=== PATIENT | male | born 1935 | race Caucasian/White ===

== ENCOUNTER 2018-10-01 14:43 | Observation (INO) | payer MEDICARE, BC ==
--- NOTE | 2018-10-01 15:19 | EDM.PDOC ---
ED HPI GENERAL MEDICAL PROBLEM - General Chief Complaint: General Stated Complaint: weakness, dizzy Time Seen by Provider: 10/01/18 15:00 Source of Information: Reports: Patient, Family History Limitations: Reports: No Limitations - History of Present Illness INITIAL COMMENTS - FREE TEXT/NARRATIVE: Daughter states that he called her after noon today and told her that he became weak when he got up at midnight and laid on the floor as he couldn't get back to bed. He laid there during the night and then was able to crawl in to the bathroom and get up. He then went back to bed but didn't call daughter right away. Daughter did not see any unilateral deficient when she arrived. She was not able to get him up and into car by herself so called an ambulance. He states that he feels really weak. Denies any specific pain other than to his right great toe and right medial foot. Denies having any chest pain. Onset: Gradual Location: Reports: Generalized Associated Symptoms: Denies: Chest Pain, Cough, Nausea/Vomiting, Shortness of Breath - Related Data Allergies Allergy/AdvReac Type Severity Reaction Status Date / Time No Known Allergies Allergy Verified 10/01/18 14:46 Home Meds: Home Meds Furosemide 40 mg PO DAILY 10/01/18 [History] Levothyroxine [Synthroid] 100 mg PO DAILY 10/01/18 [History] Past Medical History Cardiovascular History: Reports: Heart Failure Endocrine/Metabolic History: Reports: Hypothyroidism - Past Surgical History HEENT Surgical History: Reports: Cataract Surgery Social & Family History - Tobacco Use Smoking Status *Q: Never Smoker - Alcohol Use Days Per Week of Alcohol Use: 7 Number of Drinks Per Day: 1 Total Drinks Per Week: 7 - Recreational Drug Use Recreational Drug Use: No - Living Situation & Occupation Living situation: Reports: , with Spouse Occupation: Retired ED ROS GENERAL - Review of Systems Review Of Systems: See Below Constitutional: Reports: Weakness. Denies: Fever, Chills HEENT: Reports: No Symptoms Respiratory: Reports: No Symptoms Cardiovascular: Denies: Chest Pain, Edema GI/Abdominal: Denies: Abdominal Pain, Diarrhea : Denies: Dysuria, Frequency Musculoskeletal: Reports: Foot Pain Skin: Denies: Wound Neurological: Reports: Weakness. Denies: Confusion, Headache, Numbness, Syncope , Tingling ED EXAM, GENERAL - Physical Exam Exam: See Below Exam Limited By: No Limitations General Appearance: Alert, WD/WN, No Apparent Distress. No: Anxious Ears: Normal External Exam, Normal Canal, Normal TMs Nose: Normal Inspection Throat/Mouth: Normal Inspection, Normal Oropharynx, Normal Voice Head: Atraumatic, Normocephalic Neck: Normal Inspection, Supple, Non-Tender, Full Range of Motion Respiratory/Chest: No Respiratory Distress, Lungs Clear, Normal Breath Sounds. No: Rales, Rhonchi, Wheezing Cardiovascular: Regular Rate, Rhythm, No Edema, Other (does have a loud murmur that was evaluated by cardiology about 2-3 months ago and was told it is stable. ) Peripheral Pulses: 4+: Dorsalis Pedis (L), Dorsalis Pedis (R) GI/Abdominal: Normal Bowel Sounds, Soft, Non-Tender Back Exam: Normal Inspection, Full Range of Motion Extremities: Normal Inspection, Normal Range of Motion, Non-Tender, No Pedal Edema, Normal Capillary Refill Neurological: Alert, Oriented, Normal Cognition Psychiatric: Normal Affect Skin Exam: Warm, Dry, Intact Course - Vital Signs Last Recorded V/S: Last Vital Signs Temp 98.6 F 10/02/18 11:48 Pulse 66 10/02/18 11:48 Resp 20 10/02/18 11:48 BP 123/59 L 10/02/18 11:48 Pulse Ox 97 10/02/18 11:48 - Orders/Labs/Meds Orders: Active Orders 24 hr Category Date Time Status Chest 2V [CR] Stat Exams 10/01/18 14:57 Taken Medication Orders Enoxaparin Sodium (Lovenox) 30 mg SUBCUT 1999 [facility] Furosemide (Lasix) 40 mg PO DAILY [facility] Last Admin: 10/02/18 13:28 Dose: 40 mg Sodium Chloride (Normal Saline) 1,000 mls @ 50 mls/hr IV ASDIRECTED [facility] Last Admin: 10/02/18 11:00 Dose: 50 mls/hr Infusion: 10/02/18 11:00 Dose: 100 mls/hr Admin: 10/02/18 01:14 Dose: 100 mls/hr Levothyroxine Sodium (Synthroid) 100 mcg PO DAILY [facility] Last Admin: 10/02/18 13:28 Dose: 100 mcg Prednisone (Prednisone) 40 mg PO DAILY [facility] Last Admin: 10/02/18 08:55 Dose: 40 mg Admin: 10/01/18 19:02 Dose: 40 mg Labs: Laboratory Tests 10/01/18 10/01/18 10/01/18 Range/Units 15:11 15:11 15:11 WBC 14.3 H (5.0-10.0) 10^3/uL RBC 3.99 L (4.50-6.00) 10^6/uL Hgb 12.1 L (14.0-18.0) g/dL Hct 37.4 L (40.0-54.0) % MCV 93.7 (82.0-94.0) fL MCH 30.3 (27.0-32.0) pg MCHC 32.4 L (33.0-38.0) g/dL RDW Coeff of Cristina 14.9 (11.0-15.0) % Plt Count 175 (150-400) 10^3/uL Neut % (Auto) 72.4 (35-85) % Lymph % (Auto) 14.7 (10-55) % [place] % (Auto) 12.0 (0-16) % Eos % (Auto) 0.6 (0-5) % Baso % (Auto) 0.3 (0-3) % Neut # (Auto) 10.35 H (1.80-7.00) 10^3/uL Lymph # (Auto) 2.11 (1.00-4.80) 10^3/uL [place] # (Auto) 1.72 H (0.00-0.80) 10^3/uL Eos # (Auto) 0.09 (0.00-0.45) 10^3/uL Baso # (Auto) 0.05 10^3/uL Sodium 143 (136-145) mEq/L Potassium 4.3 (3.5-5.0) mEq/L Chloride 105 (98-106) mEq/L Carbon Dioxide 28 (21-32) mmol/L BUN 35 H (7-18) mg/dL Creatinine 1.7 H (0.7-1.3) mg/dL Est Cr Clr Drug Dosing 34.45 mL/min Estimated GFR (MDRD) 39 L (>=60) mL/min Glucose 105 H (75-99) mg/dL Uric Acid 8.6 H (3.5-7.2) mg/dL Calcium 8.2 L (8.4-10.1) mg/dL Total Bilirubin 1.1 H (0.0-1.0) mg/dL AST 37 (15-37) U/L ALT 26 (12-78) U/L Alkaline Phosphatase 60 (46-116) U/L Troponin I < 0.017 (0.00-0.06) ng/mL C-Reactive Protein 7.5 H (0.2-0.8) mg/dL Total Protein 6.8 (6.4-8.2) g/dL Albumin 3.2 L (3.4-5.0) g/dL Urine Color Rupali (YELLOW) Urine Appearance Clear (CLEAR) Urine pH 6.0 (4.5-8.0) Ur Specific Drew 1.020 (1.003-1.020) Urine Protein Trace H (NEGATIVE) mg/dL Urine Glucose (UA) Negative (NEGATIVE) mg/dL Urine Ketones Negative (NEGATIVE) mg/dL Urine Occult Blood Negative (NEGATIVE) Urine Nitrite Negative (NEGATIVE) Urine Bilirubin Negative (NEGATIVE) Urine Urobilinogen 1.0 (0.2-1.0) EU/dL Ur Leukocyte Esterase Negative (NEGATIVE) Urine RBC 0-5 (0-5) /HPF Urine WBC 0-5 (0-5) /HPF Ur Epithelial Cells Few H (NOT SEEN) /HPF Hyaline Casts Few H (NOT SEEN) /LPF Meds: Medications Generic Name Dose Route Start Last Admin Trade Name Freq PRN Reason Stop Dose Admin Enoxaparin Sodium 30 mg 10/02/18 20:00 Lovenox SUBCUT 2000 [facility] Furosemide 40 mg 10/02/18 08:00 10/02/18 13:28 Lasix PO 40 mg DAILY [facility] Administration Sodium Chloride 1,000 mls @ 50 mls/hr 10/01/18 18:29 10/02/18 11:00 Normal Saline IV 50 mls/hr ASDIRECTED [facility] Administration Levothyroxine Sodium 100 mcg 10/02/18 08:00 10/02/18 13:28 Synthroid PO 100 mcg DAILY [facility] Administration Prednisone 40 mg 10/01/18 18:30 10/02/18 08:55 Prednisone PO 40 mg DAILY [facility] Administration Discontinued Medications Generic Name Dose Route Start Last Admin Trade Name Freq PRN Reason Stop Dose Admin Enoxaparin Sodium 30 mg 10/01/18 18:29 10/01/18 19:02 Lovenox SUBCUT 30 mg Q24H [facility] Administration Sodium Chloride 1,000 mls @ 150 mls/hr 10/01/18 16:00 10/01/18 16:18 Normal Saline IV 150 mls/hr ASDIRECTED [facility] Administration Departure - Departure Time of Disposition: 18:44 Disposition: Refer to Observation Condition: Good Clinical Impression: Pre-syncope, Weakness, Gout - Discharge Information *PRESCRIPTION DRUG MONITORING PROGRAM REVIEWED*: Not Applicable *COPY OF PRESCRIPTION DRUG MONITORING REPORT IN PATIENT ALISIA: Not Applicable - Problem List & Annotations (1) Pre-syncope SNOMED Code(s): 103647809 Code(s): R55 - SYNCOPE AND COLLAPSE Status: Acute Priority: High Current Visit: Yes (2) Weakness SNOMED Code(s): 94906756 Code(s): R53.1 - WEAKNESS Status: Acute Priority: High Current Visit: Yes - Problem List Review Problem List Initiated/Reviewed/Updated: Yes - My Orders Last 24 Hours: My Active Orders 10/01/18 14:57 Chest 2V [CR] Stat - Assessment/Plan Admission H&P: Please use this note as an admission H&P Last 24 Hours: My Active Orders 10/01/18 14:57 Chest 2V [CR] Stat Plan: Will admit for IV fluids, neuro checks and repeat labs in the AM. Concern for an unidentified infection that may have caused his weakness. Neuro checks to evaluate for any TIA signs.
[2018-10-01 15:39] LABS: CHLORIDE,CL 105 mEq/L (98-106); SODIUM,NA 143 mEq/L (136-145)
[2018-10-01] MEDS ORDERED: Sodium Chloride 0.9% 1,000 ML IV SCH (16:00)
[2018-10-01] MEDS ORDERED: Enoxaparin 30 MG/0.3 ML Syringe SUBCUT SCH (18:29)
[2018-10-01] MEDS: predniSONE 20 MG Tab PO SCH (19:02)
[2018-10-02] MEDS: Sodium Chloride 0.9% 1,000 ML IV SCH ×2 (01:14→11:00)
[2018-10-02] MEDS: predniSONE 20 MG Tab PO SCH (08:55)
[2018-10-02] MEDS: LEVOTHYROXINE 100 MCG PO SCH (13:28)
[2018-10-02] MEDS: **PTOM** Furosemide 40 MG Tab PO SCH (13:28)
[2018-10-02] MEDS ORDERED: Enoxaparin 30 MG/0.3 ML Syringe SUBCUT SCH (20:00)
--- NOTE | 2018-10-02 20:46 | PCM.PN ---
- General Info Date of Service: 10/02/18 Admission Dx/Problem (Free Text): Weakness Functional Status: Reports: Pain Controlled, Tolerating Diet, Ambulating - Review of Systems General: Reports: Weakness, Fatigue. Denies: Fever HEENT: Reports: No Symptoms Pulmonary: Denies: Shortness of Breath, Cough Cardiovascular: Denies: Chest Pain, Edema, Lightheadedness Gastrointestinal: Denies: Abdominal Pain, Nausea, Vomiting Genitourinary: Reports: No Symptoms Musculoskeletal: Reports: Foot Pain Skin: Reports: No Symptoms Neurological: Reports: Weakness, Other (feels unsteady yet today) - Patient Data Vitals - Most Recent: Last Vital Signs Temp 97.8 F 10/02/18 19:45 Pulse 69 10/02/18 19:45 Resp 16 10/02/18 19:45 BP 139/74 10/02/18 19:45 Pulse Ox 94 L 10/02/18 19:45 Weight - Most Recent: 209 lb 1.6 oz I&O - Last 24 Hours: Intake & Output 10/02/18 10/02/18 10/02/18 06:59 14:59 22:59 Intake Total 50 2299 436 Output Total 662 801 9373 Balance -150 1649 -864 Lab Results Last 24 Hours: Laboratory Results - last 24 hr 10/02/18 10/02/18 Range/Units 07:05 07:05 WBC 10.0 (5.0-10.0) 10^3/uL RBC 3.78 L (4.50-6.00) 10^6/uL Hgb 11.5 L (14.0-18.0) g/dL Hct 35.9 L (40.0-54.0) % MCV 95.0 H (82.0-94.0) fL MCH 30.4 (27.0-32.0) pg MCHC 32.0 L (33.0-38.0) g/dL RDW Coeff of Cristina 14.9 (11.0-15.0) % Plt Count 154 (150-400) 10^3/uL Neut % (Auto) 79.9 (35-85) % Lymph % (Auto) 14.3 (10-55) % [place] % (Auto) 5.6 (0-16) % Eos % (Auto) 0 (0-5) % Baso % (Auto) 0.2 (0-3) % Neut # (Auto) 7.97 H (1.80-7.00) 10^3/uL Lymph # (Auto) 1.43 (1.00-4.80) 10^3/uL [place] # (Auto) 0.56 (0.00-0.80) 10^3/uL Eos # (Auto) 0.00 (0.00-0.45) 10^3/uL Baso # (Auto) 0.02 10^3/uL Sodium 145 (136-145) mEq/L Potassium 4.6 (3.5-5.0) mEq/L Chloride 110 H (98-106) mEq/L Carbon Dioxide 28 (21-32) mmol/L BUN 31 H (7-18) mg/dL Creatinine 1.4 H (0.7-1.3) mg/dL Est Cr Clr Drug Dosing 41.83 mL/min Estimated GFR (MDRD) 48 L (>=60) mL/min Glucose 132 H D (75-99) mg/dL Calcium 8.4 (8.4-10.1) mg/dL C-Reactive Protein 12.9 H (0.2-0.8) mg/dL Med Orders - Current: Current Medications Enoxaparin Sodium (Lovenox) 30 mg SUBCUT 1999 [facility] Last Admin: 10/02/18 19:39 Dose: 30 mg Furosemide (Lasix) 40 mg PO DAILY [facility] Last Admin: 10/02/18 13:28 Dose: 40 mg Sodium Chloride (Normal Saline) 1,000 mls @ 50 mls/hr IV ASDIRECTED [facility] Last Admin: 10/02/18 11:00 Dose: 50 mls/hr Levothyroxine Sodium (Synthroid) 100 mcg PO DAILY [facility] Last Admin: 10/02/18 13:28 Dose: 100 mcg Prednisone (Prednisone) 40 mg PO DAILY [facility] Last Admin: 10/02/18 08:55 Dose: 40 mg Discontinued Medications Enoxaparin Sodium (Lovenox) 30 mg SUBCUT Q24H [facility] Last Admin: 10/01/18 19:02 Dose: 30 mg Sodium Chloride (Normal Saline) 1,000 mls @ 150 mls/hr IV ASDIRECTED [facility] Last Admin: 10/01/18 16:18 Dose: 150 mls/hr - Exam General: Alert, Oriented HEENT: Mucous Membr. 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, especially to great toe and ball of foot) Skin: Warm, Dry Neurological: No New Focal Deficit - Problem List & Annotations (1) Gout SNOMED Code(s): 63299657 Code(s): M10.9 - GOUT, UNSPECIFIED Status: Acute Priority: High Current Visit: Yes Qualifiers: Gout site: foot Encounter type: initial encounter Chronicity: acute Laterality: right (2) Weakness SNOMED Code(s): 89868471 Code(s): R53.1 - WEAKNESS Status: Acute Priority: High Current Visit: Yes - Problem List Review Problem List Initiated/Reviewed/Updated: Yes - My Orders Last 24 Hours: My Active Orders 10/03/18 05:11 BASIC METABOLIC PANEL,BMP [CHEM] AM C-REACTIVE PROTEIN [CHEM] AM CBC WITH AUTO DIFF [HEME] AM - Assessment Assessment:: Weakness Gout - Plan Plan:: Patient was admitted after lying on his floor overnight and was weak when found. Daughter was unable to get patient up from floor due to weakness. He feels much better tonight, still weak and unsteady but improved. Still has pain in right foot. Is tender but no redness or warmth noted. Has been able to ambulate to the bathroom but with staff. WBC 10, Hemoglobin 11.5, sodium 145 , potassium 4.6. CRP is increased today to 12.9. Is afebrile, blood pressure in good control. Will reduce IV rate to 50 ml/hr as is eating and drinking well. Will continue to ambulate with assist. Repeat labs tomorrow. Possible discharge home if continues to improve.
[2018-10-03] MEDS: predniSONE 20 MG Tab PO SCH (07:45)
[2018-10-03] MEDS: LEVOTHYROXINE 100 MCG PO SCH (07:45)
[2018-10-03] MEDS: **PTOM** Furosemide 40 MG Tab PO SCH (07:46)
--- NOTE | 2018-10-03 20:09 | PCM.DCSUM1 ---
Discharge Summary - Hospital Course Free Text/Narrative:: Patient presented to ER today with weakness. He had become weak around midnight and laid on the floor and was not able to get back up so he slept there through the night. Did crawl that am to the bathroom and was able to get up from there. Returned back to bed and daughter found him there when she went to check on him. He did not have any stroke deficits noted at that time. Unable to get him up so EMS was called. He did complain of right great toe and foot pain. Labs done in the ER did indicate dehydration and gout. Was admitted and started on IV fluids. Prednisone for gout flare. Diagnosis: Stroke: No Modified [place] Scale: No Symptoms at All Modified [place] Scale Score: 0 - Discharge Data Discharge Date: 10/03/18 Discharge Disposition: Home, Self-Care 01 Condition: Good - Discharge Diagnosis/Problem(s) (1) Gout SNOMED Code(s): 11148659 ICD Code: M10.9 - GOUT, UNSPECIFIED Status: Acute Priority: High Qualifiers: Gout site: foot Encounter type: initial encounter Chronicity: acute Laterality: right (2) Weakness SNOMED Code(s): 59077424 ICD Code: R53.1 - WEAKNESS Status: Acute Priority: High - Patient Summary/Data Complications: none Hospital Course: Patient has done well through admission. He is now up and ambulating with standby assist. Denies any nausea/vomiting. No shortness of breath. Does continue to have some pain in his right foot. Remains red, mild swelling noted but admits is improved. His appetite is good. Labs improved. WBC has remained stable. Creatinine has improved from 1.7 to 1.3. CRP did peak at 12.9 yesterday, back down to 6.1 today, no infection found likely from gout. Will discharge home on 3 more days of prednisone and then start Allopurinol. Push fluids. See Dr. Cunha in a week. - Patient Instructions Diet: Usual Diet as Tolerated Activity: As Tolerated - Discharge Plan *PRESCRIPTION DRUG MONITORING PROGRAM REVIEWED*: Not Applicable *COPY OF PRESCRIPTION DRUG MONITORING REPORT IN PATIENT ALISIA: Not Applicable Prescriptions/Med Rec: predniSONE 40 mg PO DAILY #6 tablet Home Medications: Home Meds Furosemide 40 mg PO DAILY 10/01/18 [History] Levothyroxine [Synthroid] 100 mg PO DAILY 10/01/18 [History] predniSONE 40 mg PO DAILY #6 tablet 10/03/18 [Rx] Oxygen Therapy Mode: Nasal Cannula Forms: ED Department Discharge Referrals: Chucho Cunha MD [Primary Care Provider] - (Follow up with Dr. Cunha in one week) - Discharge Summary/Plan Comment DC Time >30 min.: No - General Info Date of Service: 10/03/18 Admission Dx/Problem (Free Text: Weakness Functional Status: Reports: Pain Controlled, Tolerating Diet, Ambulating - Review of Systems General: Reports: Weakness. Denies: Fever, Fatigue, Malaise HEENT: Reports: No Symptoms Pulmonary: Denies: Shortness of Breath, Cough Cardiovascular: Denies: Chest Pain, Edema, Lightheadedness Gastrointestinal: Denies: Abdominal Pain, Nausea, Vomiting Genitourinary: Reports: No Symptoms Musculoskeletal: Reports: Foot Pain Skin: Reports: Other (redness to foot) Neurological: Reports: No Symptoms - Patient Data Vitals - Most Recent: Last Vital Signs Temp 99.1 F 10/03/18 12:00 Pulse 70 10/03/18 12:00 Resp 18 10/03/18 12:00 BP 128/61 10/03/18 12:00 Pulse Ox 97 10/03/18 12:00 Weight - Most Recent: 208 lb 6.4 oz I&O - Last 24 hours: Intake & Output 10/03/18 10/03/18 10/03/18 06:59 14:59 22:59 Intake Total 500 1400 Output Total 1200 2550 Balance -700 -1150 Lab Results - Last 24 hrs: Laboratory Results - last 24 hr 10/03/18 10/03/18 Range/Units 07:22 07:22 WBC 12.7 H (5.0-10.0) 10^3/uL RBC 3.52 L (4.50-6.00) 10^6/uL Hgb 10.6 L (14.0-18.0) g/dL Hct 33.9 L (40.0-54.0) % MCV 96.3 H (82.0-94.0) fL MCH 30.1 (27.0-32.0) pg MCHC 31.3 L (33.0-38.0) g/dL RDW Coeff of Cristina 14.8 (11.0-15.0) % Plt Count 165 (150-400) 10^3/uL Neut % (Auto) 70.2 (35-85) % Lymph % (Auto) 17.4 (10-55) % [place] % (Auto) 11.0 (0-16) % Eos % (Auto) 1.2 (0-5) % Baso % (Auto) 0.2 (0-3) % Neut # (Auto) 8.91 H (1.80-7.00) 10^3/uL Lymph # (Auto) 2.20 (1.00-4.80) 10^3/uL [place] # (Auto) 1.39 H (0.00-0.80) 10^3/uL Eos # (Auto) 0.15 (0.00-0.45) 10^3/uL Baso # (Auto) 0.03 10^3/uL Sodium 144 (136-145) mEq/L Potassium 4.2 (3.5-5.0) mEq/L Chloride 108 H (98-106) mEq/L Carbon Dioxide 29 (21-32) mmol/L BUN 27 H (7-18) mg/dL Creatinine 1.3 (0.7-1.3) mg/dL Est Cr Clr Drug Dosing 45.05 mL/min Estimated GFR (MDRD) 53 L (>=60) mL/min Glucose 96 D (75-99) mg/dL Calcium 8.1 L (8.4-10.1) mg/dL C-Reactive Protein 6.1 H (0.2-0.8) mg/dL Med Orders - Current: Current Medications Discontinued Medications Enoxaparin Sodium (Lovenox) 30 mg SUBCUT Q24H [facility] Last Admin: 10/01/18 19:02 Dose: 30 mg Enoxaparin Sodium (Lovenox) 30 mg SUBCUT 2000 [facility] Last Admin: 10/02/18 19:39 Dose: 30 mg Furosemide (Lasix) 40 mg PO DAILY [facility] Last Admin: 10/03/18 07:46 Dose: 40 mg Sodium Chloride (Normal Saline) 1,000 mls @ 150 mls/hr IV ASDIRECTED [facility] Last Admin: 10/01/18 16:18 Dose: 150 mls/hr Sodium Chloride (Normal Saline) 1,000 mls @ 50 mls/hr IV ASDIRECTED [facility] Last Admin: 10/02/18 11:00 Dose: 50 mls/hr Levothyroxine Sodium (Synthroid) 100 mcg PO DAILY [facility] Last Admin: 10/03/18 07:45 Dose: 100 mcg Prednisone (Prednisone) 40 mg PO DAILY [facility] Last Admin: 10/03/18 07:45 Dose: 40 mg - Exam General: Reports: Alert, Oriented HEENT: Reports: Mucous Membr. Moist/[place] Neck: Reports: Supple Lungs: Reports: Clear to Auscultation, Normal Respiratory Effort Cardiovascular: Reports: Regular Rate, Regular Rhythm GI/Abdominal Exam: Normal Bowel Sounds, Soft, Non-Tender Extremities: Increased Warmth, Redness, Other (right foot has redness to the base of his great toe. Is tender. Mild swelling to the area.) Skin: Reports: Warm, Dry Neurological: Reports: No New Focal Deficit
== END 2018-10-03 15:20 | disposition home or self-care (01) ==
LOC: CC.ED 14:43 → CC.MS 18:14 → CC.ED 18:15 → CC.MS 18:18 → UNDOADMOB 18:18
PROVIDERS: ADMIT Physician Assistant Medical; ATTEND Family Medicine
DX: R53.1 Weakness (principal); M10.9 Gout, unspecified; R55 Syncope and collapse; I50.9 Heart failure, unspecified; E03.9 Hypothyroidism, unspecified; Z79.890 Hormone replacement therapy; Z79.899 Other long term (current) drug therapy
CPT/HCPCS: 36415; 71046; 80048; 80053; 81001; 84484; 84550; 85025; 86140; 93005; 93010; 96360; 96361; 96372; 99217; 99219; 99225; 99285; A9270; G0378; J1650; J7030

== ENCOUNTER 2019-10-08 10:10 | Inpatient (IN) | payer MEDICARE, BC ==
[2019-10-08] MEDS ORDERED: Allopurinol 300 MG Tab PO PRN (13:06)
[2019-10-08] MEDS ORDERED: Ondansetron 4 MG Tab.DIS PO PRN (14:18)
[2019-10-08] MEDS ORDERED: Sodium Chloride 0.9% 10 ML Syringe FLUSH PRN (14:18)
[2019-10-08] MEDS: Enoxaparin 80 MG/0.8 ML Syringe SUBCUT SCH (15:28)
[2019-10-08] MEDS: Sodium Chloride 0.45% 1,000 ML IV SCH (15:28)
[2019-10-08] MEDS ORDERED: Ondansetron 4 MG/2 ML SDV IVPUSH PRN (16:37)
--- NOTE | 2019-10-08 20:50 | EDM.PDOC ---
ED HPI GENERAL MEDICAL PROBLEM - General Chief Complaint: General Stated Complaint: Dizziness, SOB Time Seen by Provider: 10/08/19 10:55 Source of Information: Reports: Patient, EMS, Family History Limitations: Reports: No Limitations - History of Present Illness INITIAL COMMENTS - FREE TEXT/NARRATIVE: Patient presents to ER with syncopal episode at home. Has been noting increased cold symptoms for the last 3 days, cough and feeling short of breath when lying down. He has also been dealing with increased weakness in his legs and back spasms. Has history of orthostatic hypotension. Has seen cardiology for this and had been started on Minodrine. Family relates unsure if that has really helped his lightheadedness when he is up. Admits he just has not been feeling well. Daughter reports he had been up, went to rest in chair due to lightheadedness and "was out for a few minutes". He currently denies any chest pain. Does feel "a little short of breath". Has not had any fevers. Denies nausea/vomiting or abdominal pain. Onset: Gradual Duration: Day(s): Location: Reports: Generalized Improves with: Reports: Rest Worsens with: Reports: Movement Associated Symptoms: Reports: Shortness of Breath, Syncope, Weakness. Denies: Confusion, Chest Pain, Cough, Fever/Chills, Headaches, Nausea/Vomiting - Related Data Allergies Allergy/AdvReac Type Severity Reaction Status Date / Time No Known Allergies Allergy Verified 10/08/19 10:41 Home Meds: Home Meds Levothyroxine [Synthroid] 100 mg PO DAILY 10/01/18 [History] Acetaminophen [Tylenol] 325 mg PO Q4H PRN 10/08/19 [History] Midodrine 5 mg PO BID 10/08/19 [History] allopurinoL [Zyloprim] 300 mg PO DAILY PRN 10/08/19 [History] Past Medical History HEENT History: Reports: Hard of Hearing, Impaired Vision Cardiovascular History: Reports: Heart Failure, Heart Murmur Other Cardiovascular History: chf Gastrointestinal History: Reports: Other (See Below) Other Gastrointestinal History: COLON CANCER Musculoskeletal History: Reports: Gout Endocrine/Metabolic History: Reports: Hypothyroidism Oncologic (Cancer) History: Reports: Colon - Past Surgical History HEENT Surgical History: Reports: Cataract Surgery GI Surgical History: Reports: Colostomy Dermatological Surgical History: Reports: Other (See Below) Social & Family History - Family History Family Medical History: Noncontributory - Tobacco Use Smoking Status *Q: Never Smoker Used Tobacco, but Quit: Yes Month/Year Tobacco Last Used: 25 YEARS AGO Second Hand Smoke Exposure: No - Caffeine Use Caffeine Use: Reports: Coffee - Alcohol Use Days Per Week of Alcohol Use: 7 Number of Drinks Per Day: 1 Total Drinks Per Week: 7 - Recreational Drug Use Recreational Drug Use: No - Living Situation & Occupation Living situation: Reports: , with Spouse Occupation: Retired ED ROS GENERAL - Review of Systems Review Of Systems: See Below Constitutional: Reports: Malaise, Weakness, Fatigue. Denies: Fever, Chills, Decreased Appetite HEENT: Reports: Ear Discharge, Rhinitis, Vertigo. Denies: Ear Pain, Throat Pain Respiratory: Reports: Shortness of Breath, Cough. Denies: Wheezing, Sputum Cardiovascular: Reports: Lightheadedness. Denies: Chest Pain, Edema Endocrine: Reports: Fatigue GI/Abdominal: Denies: Abdominal Pain, Diarrhea, Nausea, Vomiting : Reports: No Symptoms Musculoskeletal: Reports: Back Pain Skin: Reports: No Symptoms Neurological: Reports: Dizziness, Syncope, Weakness ED EXAM, GENERAL - Physical Exam Exam: See Below Exam Limited By: No Limitations General Appearance: Alert, WD/WN, No Apparent Distress Ears: Normal External Exam, Normal TMs Nose: Normal Inspection, Normal Mucosa, Nasal Drainage, Clear Rhinorrhea Throat/Mouth: Normal Inspection, Normal Oropharynx Head: Normocephalic Neck: Normal Inspection, Supple, Non-Tender Respiratory/Chest: No Respiratory Distress, Wheezing Cardiovascular: Regular Rate, Rhythm, No Edema GI/Abdominal: Normal Bowel Sounds, Soft, Non-Tender Extremities: Normal Inspection, Pedal Edema Neurological: Alert, Oriented Skin Exam: Warm, Dry Course - Vital Signs Last Recorded V/S: Last Vital Signs Temp 98.1 F 10/08/19 16:00 Pulse 66 10/08/19 16:00 Resp 20 10/08/19 16:00 BP 168/79 H 10/08/19 16:00 Pulse Ox 96 10/08/19 16:00 - Orders/Labs/Meds Orders: Active Orders 24 hr Category Date Time Status Chest 1V Frontal [CR] Stat Exams 10/08/19 10:31 Taken Medication Orders Acetaminophen (Tylenol) 650 mg PO Q4H PRN PRN Reason: Pain (Mild 1-3)/fever Enoxaparin Sodium (Lovenox) 80 mg SUBCUT Q12H [facility] Last Admin: 10/08/19 15:28 Dose: 80 mg Sodium Chloride (Sodium Chloride 0.45%) 1,000 mls @ 75 mls/hr IV ASDIRECTED MICHELLE Last Admin: 10/08/19 15:28 Dose: 75 mls/hr Levothyroxine Sodium (Synthroid) 100,000 mcg PO DAILY [facility] Non-Formulary Medication (Midodrine [Midodrine]) 5 mg PO BID@0600,1200 [facility] Ondansetron HCl (Zofran Odt) 4 mg PO Q4H PRN PRN Reason: nausea, able to take PO Last Admin: 10/08/19 16:13 Dose: 4 mg Ondansetron HCl (Zofran) 4 mg IVPUSH Q6H PRN PRN Reason: Nausea Sodium Chloride (Saline Flush) 10 ml FLUSH ASDIRECTED PRN PRN Reason: Keep Vein Open Labs: Laboratory Tests 10/08/19 10/08/19 10/08/19 Range/Units 10:48 10:48 10:48 WBC 6.4 (5.0-10.0) 10^3/uL RBC 3.65 L (4.50-6.00) 10^6/uL Hgb 11.3 L (14.0-18.0) g/dL Hct 34.3 L (40.0-54.0) % MCV 94.0 (82.0-94.0) fL MCH 31.0 (27.0-32.0) pg MCHC 32.9 L (33.0-38.0) g/dL RDW Coeff of Cristina 15.1 H (11.0-15.0) % Plt Count 154 (150-400) 10^3/uL Neut % (Auto) 51.9 (35-85) % Lymph % (Auto) 27.3 (10-55) % Glynn % (Auto) 19.4 H (0-16) % Eos % (Auto) 1.1 (0-5) % Baso % (Auto) 0.3 (0-3) % Neut # (Auto) 3.32 (1.80-7.00) 10^3/uL Lymph # (Auto) 1.75 (1.00-4.80) 10^3/uL [place]nn # (Auto) 1.24 H (0.00-0.80) 10^3/uL Eos # (Auto) 0.07 (0.00-0.45) 10^3/uL Baso # (Auto) 0.02 10^3/uL D-Dimer, Quantitative 4.77 H (0.00-0.50) Sodium 143 (136-145) mEq/L Potassium 4.3 (3.5-5.0) mEq/L Chloride 107 H (98-106) mEq/L Carbon Dioxide 27 (21-32) mmol/L BUN 32 H (7-18) mg/dL Creatinine 1.7 H (0.7-1.3) mg/dL Est Cr Clr Drug Dosing 34.87 mL/min Estimated GFR (MDRD) 38 L (>=60) mL/min Glucose 97 (75-99) mg/dL Calcium 8.7 (8.4-10.1) mg/dL Total Bilirubin 0.5 (0.0-1.0) mg/dL AST 38 H (15-37) U/L ALT 30 (12-78) U/L Alkaline Phosphatase 74 (46-116) U/L Troponin I 0.029 (0.00-0.06) ng/mL C-Reactive Protein 4.0 H (0.2-0.8) mg/dL NT-Pro-B Natriuret Pep 1718 H (0-1000) pg/mL Total Protein 6.7 (6.4-8.2) g/dL Albumin 3.2 L (3.4-5.0) g/dL Meds: Medications Generic Name Dose Route Start Last Admin Trade Name Freq PRN Reason Stop Dose Admin Acetaminophen 650 mg 10/08/19 14:18 Tylenol PO Q4H PRN Pain (Mild 1-3)/fever Enoxaparin Sodium 80 mg 10/08/19 14:30 10/08/19 15:28 Lovenox SUBCUT 80 mg Q12H MICHELLE Administration Sodium Chloride 1,000 mls @ 75 mls/hr 10/08/19 14:18 10/08/19 15:28 Sodium Chloride 0.45% IV 75 mls/hr ASDIRECTED MICHELLE Administration Levothyroxine Sodium 100,000 mcg 10/09/19 08:00 Synthroid PO DAILY MICHEL[facility] Non-Formulary Medication 5 mg 10/09/19 06:00 Midodrine [Midodrine] PO BID@0600,1200 [facility] Ondansetron HCl 4 mg 10/08/19 14:18 10/08/19 16:13 Zofran Odt PO 4 mg Q4H PRN Administration nausea, able to take PO Ondansetron HCl 4 mg 10/08/19 16:37 Zofran IVPUSH Q6H PRN Nausea Sodium Chloride 10 ml 10/08/19 14:18 Saline Flush FLUSH ASDIRECTED PRN Keep Vein Open Discontinued Medications Generic Name Dose Route Start Last Admin Trade Name Freq PRN Reason Stop Dose Admin Allopurinol 300 mg 10/08/19 13:06 Zyloprim PO DAILY PRN Other - Re-Assessments/Exams Free Text/Narrative Re-Assessment/Exam: 10/08/19 1100- Daughter aware of lab results. D-Dimer is elevated however creatinine 1.7. wBC is normal, CRP only mildly elevated at 4. ProBNP 1718. Unable to do CTA due to creatinine. 1200- Patient remains stable, report oxygen levels low on room air. Discussed admission with daughter versus transfer. ADvised unable to obtain CT scan due to creatinine and if wanting definitive diagnosis, would recommend transfer so could obtain VQ scan. Aware would treat with Lovenox to cover PE and obtain ultrasound of legs to determine if noted clot. Relates would like to discuss with siblings. Patient full code. 1250- Daughter reports would like to keep patient in [place], treat with Lovenox and if creatinine better in am, would obtain CT at that time. Family comfortable with that plan. Will give IV fluids cautiously to prevent overload but hopefully improve kidney function. Departure - Departure Time of Disposition: 12:55 Disposition: Admitted As Inpatient 65 Condition: Fair Clinical Impression: Syncope, Shortness of breath, Weakness - Discharge Information *PRESCRIPTION DRUG MONITORING PROGRAM REVIEWED*: No *COPY OF PRESCRIPTION DRUG MONITORING REPORT IN PATIENT ALISIA: No Sepsis Event Note - Evaluation Sepsis Screening Result: No Definite Risk - Focused Exam Vital Signs: Vital Signs Temp Pulse Resp BP Pulse Ox 10/08/19 12:29 98.4 F 76 18 123/65 91 L 10/08/19 11:31 65 18 144/78 H 97 10/08/19 10:35 66 20 122/86 96 10/08/19 10:23 97.2 F 70 16 136/76 91 L Date Exam was Performed: 10/08/19 Time Exam was Performed: 20:43 - Problem List & Annotations (1) Weakness SNOMED Code(s): 24503775 Code(s): R53.1 - WEAKNESS Status: Acute Priority: High Current Visit: Yes (2) Shortness of breath SNOMED Code(s): 984892514 Code(s): R06.02 - SHORTNESS OF BREATH Status: Acute Current Visit: Yes (3) Syncope SNOMED Code(s): 882159342 Code(s): R55 - SYNCOPE AND COLLAPSE Status: Acute Priority: High Current Visit: Yes Qualifiers: Encounter type: initial encounter - Problem List Review Problem List Initiated/Reviewed/Updated: Yes - My Orders Last 24 Hours: My Active Orders 10/08/19 10:31 Chest 1V Frontal [CR] Stat - Assessment/Plan Admission H&P: Please use this note as an admission H&P Last 24 Hours: My Active Orders 10/08/19 10:31 Chest 1V Frontal [CR] Stat Assessment:: Weakness Shortness of breath Syncope Plan: Patient admitted to inpatient. Will start 1/2 NS at 75 ml/hr. LOvenox 80 mg BID. Repeat labs in am, obtain CTA of chest if able. PT consult for back pain
[2019-10-09] MEDS: Acetaminophen 325 MG Tab PO PRN ×2 (00:29→18:41)
[2019-10-09] MEDS: Enoxaparin 80 MG/0.8 ML Syringe SUBCUT SCH (02:32)
[2019-10-09] MEDS: Sodium Chloride 0.45% 1,000 ML IV SCH ×2 (02:33→17:20)
[2019-10-09] MEDS ORDERED: MIDODRINE 5 MG PO SCH (06:00)
[2019-10-09] MEDS ORDERED: Levothyroxine 100 MCG Tab PO SCH (08:00)
[2019-10-09] MEDS ORDERED: Iopamidol 755 Mg/ML 100 ML Bottle IVPUSH ONE (08:28)
[2019-10-09] MEDS: MIDODRINE 5 MG PO SCH ×2 (08:41→13:37)
[2019-10-09] MEDS: Levothyroxine 100 MCG Tab PO SCH (08:43)
[2019-10-09] MEDS: cefTRIAXone 1 GM Vial IVPUSH SCH (11:02)
[2019-10-09] MEDS: Azithromycin 500 MG in Sodium Chloride 0.9% 250 ML IV SCH (11:17)
[2019-10-09] MEDS: Enoxaparin 30 MG/0.3 ML Syringe SUBCUT SCH (13:37)
--- NOTE | 2019-10-09 18:53 | PCM.PN ---
- General Info Date of Service: 10/09/19 Admission Dx/Problem (Free Text): Shortness of breath Weakness Syncope Functional Status: Reports: Pain Controlled, Tolerating Diet, Ambulating - Review of Systems General: Reports: Fever (low grade), Weakness, Fatigue, Malaise HEENT: Reports: Sinus Congestion, Rhinitis. Denies: Ear Pain Pulmonary: Reports: Shortness of Breath, Cough, Wheezing Cardiovascular: Reports: Edema. Denies: Chest Pain, Lightheadedness Gastrointestinal: Denies: Abdominal Pain, Nausea, Vomiting Genitourinary: Reports: No Symptoms Musculoskeletal: Reports: Back Pain Skin: Reports: No Symptoms Neurological: Reports: Weakness Psychiatric: Reports: No Symptoms - Patient Data Vitals - Most Recent: Last Vital Signs Temp 98.2 F 10/09/19 16:00 Pulse 67 10/09/19 16:00 Resp 20 10/09/19 16:00 BP 145/74 H 10/09/19 16:00 Pulse Ox 100 10/09/19 16:00 Weight - Most Recent: 194 lb 9.6 oz I&O - Last 24 Hours: Intake & Output 10/09/19 10/09/19 10/09/19 06:59 14:59 22:59 Intake Total 831 1000 Balance 831 1000 Lab Results Last 24 Hours: Laboratory Results - last 24 hr 10/09/19 10/09/19 10/09/19 Range/Units 04:31 07:10 07:10 WBC 7.0 (5.0-10.0) 10^3/uL RBC 3.43 L (4.50-6.00) 10^6/uL Hgb 10.5 L (14.0-18.0) g/dL Hct 32.3 L (40.0-54.0) % MCV 94.2 H (82.0-94.0) fL MCH 30.6 (27.0-32.0) pg MCHC 32.5 L (33.0-38.0) g/dL RDW Coeff of Cristina 15.0 (11.0-15.0) % Plt Count 153 (150-400) 10^3/uL MPV 9.5 fL Sodium 143 (136-145) mEq/L Potassium 4.3 (3.5-5.0) mEq/L Chloride 108 H (98-106) mEq/L Carbon Dioxide 28 (21-32) mmol/L BUN 28 H (7-18) mg/dL Creatinine 1.5 H (0.7-1.3) mg/dL Est Cr Clr Drug Dosing 39.52 mL/min Estimated GFR (MDRD) 44 L (>=60) mL/min Glucose 89 (75-99) mg/dL Calcium 8.5 (8.4-10.1) mg/dL C-Reactive Protein 3.9 H (0.2-0.8) mg/dL Urine Color Yellow (YELLOW) Urine Appearance Clear (CLEAR) Urine pH 5.0 (4.5-8.0) Ur Specific [place] 1.015 (1.003-1.020) Urine Protein Negative (NEGATIVE) mg/dL Urine Glucose (UA) Negative (NEGATIVE) mg/dL Urine Ketones Negative (NEGATIVE) mg/dL Urine Occult Blood Negative (NEGATIVE) Urine Nitrite Negative (NEGATIVE) Urine Bilirubin Negative (NEGATIVE) Urine Urobilinogen 0.2 (0.2-1.0) EU/dL Ur Leukocyte Esterase Negative (NEGATIVE) Urine RBC Not seen (0-5) /HPF Urine WBC Not seen (0-5) /HPF Med Orders - Current: Current Medications Acetaminophen (Tylenol) 650 mg PO Q4H PRN PRN Reason: Pain (Mild 1-3)/fever Last Admin: 10/09/19 18:41 Dose: 650 mg Ceftriaxone Sodium (Rocephin) 1 gm IVPUSH Q24H [facility] Last Admin: 10/09/19 11:02 Dose: 1 gm Enoxaparin Sodium (Lovenox) 30 mg SUBCUT Q24H [facility] Last Admin: 10/09/19 13:37 Dose: 30 mg Sodium Chloride (Sodium Chloride 0.45%) 1,000 mls @ 75 mls/hr IV ASDIRECTED [facility] Last Admin: 10/09/19 17:20 Dose: 75 mls/hr Azithromycin 500 mg/ Sodium (Chloride) 250 mls @ 250 mls/hr IV Q24H [facility] Last Admin: 10/09/19 11:17 Dose: 250 mls/hr Levothyroxine Sodium (Synthroid) 100 mcg PO ACBREAKFAST [facility] Last Admin: 10/09/19 08:43 Dose: 100 mcg Midodrine [Midodrine (] 5 MgOwn Med) 5 mg PO BID@0800,1300 [facility] Last Admin: 10/09/19 13:37 Dose: 5 mg Ondansetron HCl (Zofran Odt) 4 mg PO Q4H PRN PRN Reason: nausea, able to take PO Last Admin: 10/08/19 16:13 Dose: 4 mg Ondansetron HCl (Zofran) 4 mg IVPUSH Q6H PRN PRN Reason: Nausea Sodium Chloride (Saline Flush) 10 ml FLUSH ASDIRECTED PRN PRN Reason: Keep Vein Open Discontinued Medications Allopurinol (Zyloprim) 300 mg PO DAILY PRN PRN Reason: Other Enoxaparin Sodium (Lovenox) 80 mg SUBCUT Q12H [facility] Last Admin: 10/09/19 02:32 Dose: 80 mg Iopamidol (Isovue-370 (76%)) 100 ml IVPUSH ONETIME ONE Stop: 10/09/19 08:29 Last Admin: 10/09/19 09:38 Dose: 100 ml Levothyroxine Sodium (Synthroid) 100,000 mcg PO DAILY [facility] Last Admin: 10/09/19 08:43 Dose: Not Given Non-Formulary Medication (Midodrine [Midodrine]) 5 mg PO BID@0600,1200 [facility] Last Admin: 10/09/19 08:42 Dose: Not Given - Exam Quality Assessment: Supplemental Oxygen General: Alert, Oriented HEENT: Mucous Membr. Moist/[place] Neck: Supple Lungs: Decreased Breath Sounds, Wheezing Cardiovascular: Regular Rate, Regular Rhythm GI/Abdominal Exam: Normal Bowel Sounds, Soft, Non-Tender Extremities: Normal Inspection, Pedal Edema (trace) Skin: Warm, Dry Neurological: No New Focal Deficit Sepsis Event Note - Evaluation Sepsis Screening Result: No Definite Risk - Focused Exam Vital Signs: Vital Signs Temp Temp Pulse Resp BP BP Pulse Ox 10/09/19 16:00 98.2 F 67 20 145/74 H 100 10/09/19 12:00 98.0 F 62 20 164/79 H 100 10/09/19 08:00 97.6 F 62 20 135/59 L 98 Date Exam was Performed: 10/09/19 Time Exam was Performed: 18:47 - Problem List & Annotations (1) Weakness SNOMED Code(s): 12452768 Code(s): R53.1 - WEAKNESS Status: Acute Priority: High Current Visit: Yes (2) Shortness of breath SNOMED Code(s): 124986090 Code(s): R06.02 - SHORTNESS OF BREATH Status: Acute Priority: High Current Visit: Yes (3) Syncope SNOMED Code(s): 225078982 Code(s): R55 - SYNCOPE AND COLLAPSE Status: Acute Priority: High Current Visit: Yes Qualifiers: Encounter type: initial encounter (4) Pneumonia SNOMED Code(s): 579087895 Code(s): J18.9 - PNEUMONIA, UNSPECIFIED ORGANISM Status: Acute Priority: High Current Visit: Yes Qualifiers: Pneumonia type: due to other aerobic Gram-negative bacteria Laterality: bilateral Lung location: lower lobe of lung Qualified Code(s): J15.6 - Pneumonia due to other Gram-negative bacteria - Problem List Review Problem List Initiated/Reviewed/Updated: Yes - My Orders Last 24 Hours: My Active Orders 10/09/19 08:14 Ang Chest [CT] Routine 10/09/19 08:30 Levothyroxine [Synthroid] 100 mcg PO ACBREAKFAST Midodrine [Midodrine] 5 mg PO BID@0800,1300 10/09/19 11:00 Azithromycin [Zithromax] 500 mg Sodium Chloride 0.9% [Normal Saline] 250 ml IV Q24H cefTRIAXone [Rocephin] 1 gm IVPUSH Q24H 10/09/19 13:30 Enoxaparin [Lovenox] 30 mg SUBCUT Q24H - Assessment Assessment:: Pneumonia Weakness Shortness of breath Syncope - Plan Plan:: Patient admits to feeling better this am. Less lightheadedness, back "somewhat better after resting". Oxygen at 2 liters. States does tolerate ambulation for short distances but legs get weak and back hurts as well. Noted to have low grade fevers. Blood pressure 140/75 this am. WBC normal today at 7.0. CRP 3.9. Creatinine has improved with IV fluids overnight to 1.5. Did proceed with CTA of chest today. Negative for PE but noted to have developing infiltrates. Started on Zithromax and Rocephin. Continue IV fluids overnight to prevent any further kidney injury. Physical Therapy as directed. Social service consult for discharge planning. Repeat labs in am.
[2019-10-09] MEDS ORDERED: Acetaminophen/HYDROcodone 325-5 MG Tab PO ONE (22:00)
[2019-10-10] MEDS: Sodium Chloride 0.45% 1,000 ML IV SCH ×2 (05:31→19:57)
[2019-10-10] MEDS: Levothyroxine 100 MCG Tab PO SCH (07:41)
[2019-10-10] MEDS: MIDODRINE 5 MG PO SCH ×2 (07:42→12:49)
[2019-10-10] MEDS: cefTRIAXone 1 GM Vial IVPUSH SCH (10:18)
[2019-10-10] MEDS: Acetaminophen/HYDROcodone 325-5 MG Tab PO PRN ×2 (10:22→16:49)
[2019-10-10] MEDS: Azithromycin 500 MG in Sodium Chloride 0.9% 250 ML IV SCH (11:13)
[2019-10-10] MEDS: Enoxaparin 30 MG/0.3 ML Syringe SUBCUT SCH (12:48)
--- NOTE | 2019-10-10 21:17 | PCM.PN ---
- General Info Date of Service: 10/10/19 Admission Dx/Problem (Free Text): Shortness of breath Weakness Syncope Functional Status: Reports: Pain Controlled (states had increased pain all through the night in his legs and hips. Is better this am.), Tolerating Diet, Ambulating - Review of Systems General: Reports: Weakness, Fatigue, Malaise HEENT: Reports: No Symptoms Pulmonary: Reports: Cough, Wheezing. Denies: Shortness of Breath, Sputum Cardiovascular: Reports: Edema. Denies: Chest Pain, Lightheadedness Gastrointestinal: Denies: Abdominal Pain, Nausea, Vomiting Genitourinary: Reports: No Symptoms Musculoskeletal: Reports: Back Pain, Leg Pain Skin: Reports: No Symptoms Neurological: Reports: Weakness - Patient Data Vitals - Most Recent: Last Vital Signs Temp 99.6 F 10/10/19 20:00 Pulse 75 10/10/19 20:00 Resp 18 10/10/19 20:00 BP 120/62 10/10/19 20:00 Pulse Ox 98 10/10/19 20:00 Weight - Most Recent: 194 lb 9.6 oz I&O - Last 24 Hours: Intake & Output 10/10/19 10/10/19 10/10/19 06:59 14:59 22:59 Intake Total 914 1000 Balance 914 1000 Lab Results Last 24 Hours: Laboratory Results - last 24 hr 10/10/19 10/10/19 Range/Units 06:50 06:50 WBC 11.6 H (5.0-10.0) 10^3/uL RBC 3.38 L (4.50-6.00) 10^6/uL Hgb 10.3 L (14.0-18.0) g/dL Hct 31.9 L (40.0-54.0) % MCV 94.4 H (82.0-94.0) fL MCH 30.5 (27.0-32.0) pg MCHC 32.3 L (33.0-38.0) g/dL RDW Coeff of Cristina 15.0 (11.0-15.0) % Plt Count 175 (150-400) 10^3/uL Neut % (Auto) 48.7 (35-85) % Lymph % (Auto) 39.1 (10-55) % [place] % (Auto) 10.1 (0-16) % Eos % (Auto) 1.7 (0-5) % Baso % (Auto) 0.4 (0-3) % Neut # (Auto) 5.65 (1.80-7.00) 10^3/uL Lymph # (Auto) 4.55 (1.00-4.80) 10^3/uL [place] # (Auto) 1.18 H (0.00-0.80) 10^3/uL Eos # (Auto) 0.20 (0.00-0.45) 10^3/uL Baso # (Auto) 0.05 10^3/uL Sodium 140 (136-145) mEq/L Potassium 4.1 (3.5-5.0) mEq/L Chloride 104 (98-106) mEq/L Carbon Dioxide 25 (21-32) mmol/L BUN 28 H (7-18) mg/dL Creatinine 1.8 H (0.7-1.3) mg/dL Est Cr Clr Drug Dosing 32.93 mL/min Estimated GFR (MDRD) 36 L (>=60) mL/min Glucose 132 H D (75-99) mg/dL Calcium 8.3 L (8.4-10.1) mg/dL C-Reactive Protein 3.3 H (0.2-0.8) mg/dL Med Orders - Current: Current Medications Acetaminophen (Tylenol) 650 mg PO Q4H PRN PRN Reason: Pain (Mild 1-3)/fever Last Admin: 10/09/19 18:41 Dose: 650 mg Hydrocodone Bitart/Acetaminophen ([place] 325-5 Mg) 1 tab PO Q6H PRN PRN Reason: Pain Last Admin: 10/10/19 16:49 Dose: 1 tab Ceftriaxone Sodium (Rocephin) 1 gm IVPUSH Q24H [facility] Last Admin: 10/10/19 10:18 Dose: 1 gm Enoxaparin Sodium (Lovenox) 30 mg SUBCUT Q24H [facility] Last Admin: 10/10/19 12:48 Dose: 30 mg Sodium Chloride (Sodium Chloride 0.45%) 1,000 mls @ 75 mls/hr IV ASDIRECTED [facility] Last Admin: 10/10/19 19:57 Dose: 75 mls/hr Azithromycin 500 mg/ Sodium (Chloride) 250 mls @ 250 mls/hr IV Q24H [facility] Last Admin: 10/10/19 11:13 Dose: 250 mls/hr Levothyroxine Sodium (Synthroid) 100 mcg PO ACBREAKFAST [facility] Last Admin: 10/10/19 07:41 Dose: 100 mcg Midodrine [Midodrine (] 5 MgOwn Med) 5 mg PO BID@0800,1300 [facility] Last Admin: 10/10/19 12:49 Dose: 5 mg Ondansetron HCl (Zofran Odt) 4 mg PO Q4H PRN PRN Reason: nausea, able to take PO Last Admin: 10/08/19 16:13 Dose: 4 mg Ondansetron HCl (Zofran) 4 mg IVPUSH Q6H PRN PRN Reason: Nausea Last Admin: 10/09/19 23:44 Dose: 4 mg Sodium Chloride (Saline Flush) 10 ml FLUSH ASDIRECTED PRN PRN Reason: Keep Vein Open Discontinued Medications Hydrocodone Bitart/Acetaminophen ([place] 325-5 Mg) 1 tab PO ONETIME ONE Stop: 10/09/19 22:01 Last Admin: 10/09/19 22:24 Dose: 1 tab Allopurinol (Zyloprim) 300 mg PO DAILY PRN PRN Reason: Other Enoxaparin Sodium (Lovenox) 80 mg SUBCUT Q12H [facility] Last Admin: 10/09/19 02:32 Dose: 80 mg Iopamidol (Isovue-370 (76%)) 100 ml IVPUSH ONETIME ONE Stop: 10/09/19 08:29 Last Admin: 10/09/19 09:38 Dose: 100 ml Levothyroxine Sodium (Synthroid) 100,000 mcg PO DAILY [facility] Last Admin: 10/09/19 08:43 Dose: Not Given Non-Formulary Medication (Midodrine [Midodrine]) 5 mg PO BID@0600,1200 [facility] Last Admin: 10/09/19 08:42 Dose: Not Given - Exam Quality Assessment: Supplemental Oxygen General: Alert, Oriented HEENT: Mucous Membr. Moist/[place] Neck: Supple Lungs: Decreased Breath Sounds, Rhonchi Cardiovascular: Regular Rate, Regular Rhythm GI/Abdominal Exam: Normal Bowel Sounds, Soft, Non-Tender Extremities: Normal Inspection, Pedal Edema (1+) Skin: Warm, Dry Neurological: No New Focal Deficit Sepsis Event Note - Evaluation Sepsis Screening Result: No Definite Risk - Focused Exam Vital Signs: Vital Signs Temp Pulse Resp BP Pulse Ox 10/10/19 20:00 99.6 F 75 18 120/62 98 10/10/19 15:41 97.0 F 75 20 135/58 L 97 10/10/19 11:36 98.4 F 69 20 147/66 H 97 10/10/19 10:00 132/65 Date Exam was Performed: 10/10/19 Time Exam was Performed: 21:12 - Problem List & Annotations (1) Weakness SNOMED Code(s): 36028451 Code(s): R53.1 - WEAKNESS Status: Acute Priority: High Current Visit: Yes (2) Shortness of breath SNOMED Code(s): 975961041 Code(s): R06.02 - SHORTNESS OF BREATH Status: Acute Priority: High Current Visit: Yes (3) Syncope SNOMED Code(s): 616434875 Code(s): R55 - SYNCOPE AND COLLAPSE Status: Acute Priority: High Current Visit: Yes Qualifiers: Encounter type: initial encounter (4) Pneumonia SNOMED Code(s): 297890604 Code(s): J18.9 - PNEUMONIA, UNSPECIFIED ORGANISM Status: Acute Priority: High Current Visit: Yes Qualifiers: Pneumonia type: due to other aerobic Gram-negative bacteria Laterality: bilateral Lung location: lower lobe of lung Qualified Code(s): J15.6 - Pneumonia due to other Gram-negative bacteria - Problem List Review Problem List Initiated/Reviewed/Updated: Yes - My Orders Last 24 Hours: My Active Orders 10/09/19 22:10 Acetaminophen/HYDROcodone [[place] 325-5 MG] 1 tab PO Q6H PRN 10/11/19 05:11 BASIC METABOLIC PANEL,BMP [CHEM] DAILY C-REACTIVE PROTEIN [CHEM] DAILY CBC WITH AUTO DIFF [HEME] DAILY - Assessment Assessment:: Pneumonia Weakness Shortness of breath Syncope - Plan Plan:: Patient admits to feeling better this am. Less lightheadedness, back "somewhat better after resting". Oxygen at 2 liters. States does tolerate ambulation for short distances but legs get weak and back hurts as well. Noted to have low grade fevers. Blood pressure 140/75 this am. WBC normal today at 7.0. CRP 3.9. Creatinine has improved with IV fluids overnight to 1.5. Did proceed with CTA of chest today. Negative for PE but noted to have developing infiltrates. Started on Zithromax and Rocephin. Continue IV fluids overnight to prevent any further kidney injury. Physical Therapy as directed. Social service consult for discharge planning. Repeat labs in am. 10-10-2019 patient admits to having a rough night, states was having increased back spasms , leg pain. Tried to sleep in chair but did not rest well. Was given hydrocodone during the night. He feels his muscles are sore due to having PT yesterday. Noting more edema this am as legs were dangling more last night. States cough is looser today. Lung sounds noted to have rhonchi in the bases. WBC stable at 11.6. CRP 3.3. Creatinine elevated at 1.8 this am. Will continue IV fluids due to increase in creatinine likely related to contrast for CT. Was found to have pneumonia so will continue with IV antibiotics. [employer] emergency services manager met with patient and discussed home safety with patient. Plan will be for him to transfer to [facility] for strengthening and PT for his back with hopes to return back home. Likely transfer to swing bed tomorrow until this can be arranged.
[2019-10-11] MEDS: Levothyroxine 100 MCG Tab PO SCH (07:42)
[2019-10-11] MEDS: MIDODRINE 5 MG PO SCH (07:45)
[2019-10-11] MEDS: Acetaminophen/HYDROcodone 325-5 MG Tab PO PRN (08:12)
--- NOTE | 2019-10-11 13:44 | PCM.DCSUM1 ---
Discharge Summary - Hospital Course Free Text/Narrative:: Lebron is an 84 year old who presented to ER after a syncopal episode at home. Not feeling well over the last 3 days, increased cough and feeling more short of breath. He has been dealing with increased back pain, muscle spasms and weakness in his legs. Does have a history of orthostatic hypotension. Has seen cardiology for this and was started on Minodrine. Daughter relates has not really seemed to help. On am of ER admission, he had gotten up, felt lightheaded and became syncopal. Denied chest pain. No fevers. No nausea/ vomiting or abdominal pain. Work up in the ER included EKG, which was normal. Labs noted elevated d-dimer at 4.77, creatinine 1.7 so unable to do CTA to rule out PE. Troponin negative. Admitted and started on IV fluids, Lovenox to cover for PE. Had discussed transfer with family for further testing as could obtain VQ scan versus covering for PE today, family declined. Diagnosis: Stroke: No Modified Story Scale: No Symptoms at All Modified Story Scale Score: 0 - Discharge Data Discharge Date: 10/11/19 Discharge Disposition: DC/Tfer W/I Hosp To Swing 61 Condition: Good - Referral to Home Health Primary Care Physician: Jordyn Farah PA-C - Discharge Diagnosis/Problem(s) (1) Weakness SNOMED Code(s): 02112207 ICD Code: R53.1 - WEAKNESS Status: Acute Priority: High (2) Shortness of breath SNOMED Code(s): 236626330 ICD Code: R06.02 - SHORTNESS OF BREATH Status: Acute Priority: High (3) Syncope SNOMED Code(s): 384075104 ICD Code: R55 - SYNCOPE AND COLLAPSE Status: Acute Priority: High Qualifiers: Encounter type: initial encounter (4) Pneumonia SNOMED Code(s): 633817401 ICD Code: J18.9 - PNEUMONIA, UNSPECIFIED ORGANISM Status: Acute Priority : High Qualifiers: Pneumonia type: due to other aerobic Gram-negative bacteria Laterality: bilateral Lung location: lower lobe of lung Qualified Code(s): J15.6 - Pneumonia due to other Gram-negative bacteria - Patient Summary/Data Complications: none Consults: Consultations 10/08/19 14:18 PT Evaluation and Treatment [CONS] Routine Hospital Course: Patient is stable this am. Labs have improved, creatinine did improve and were able to do CT scan of chest. Negative for PE, did show consolidated areas concerning for pneumonia. Was kept on IV fluids as after CT with contrast, creatinine bumped back up to 1.8. Started on IV Rocephin and Zithromax. Cough looser, lung sounds show rhonchi in the bases. WBC peaked at 11.9, CR P at 5.9. Patient continues to have random syncopal episodes when getting up to ambulate or to bathroom. Do not note telemetry changes or low blood pressures when they occur. Will transfer to swing bed for further monitoring, IV antibiotics. Will address with cardiology. - Patient Instructions Diet: Usual Diet as Tolerated Activity: As Tolerated - Discharge Plan *PRESCRIPTION DRUG MONITORING PROGRAM REVIEWED*: No *COPY OF PRESCRIPTION DRUG MONITORING REPORT IN PATIENT ALISIA: No Home Medications: Home Meds Levothyroxine [Synthroid] 100 mcg PO DAILY 10/01/18 [History] Acetaminophen [Tylenol] 325 mg PO Q4H PRN 10/08/19 [History] Midodrine 5 mg PO BID 10/08/19 [History] allopurinoL [Zyloprim] 300 mg PO DAILY PRN 10/08/19 [History] Patient Handouts: Shortness of Breath, Adult, Syncope Forms: ED Department Discharge Referrals: Jordyn Farah PA-C [Primary Care Provider] - - Discharge Summary/Plan Comment DC Time >30 min.: No - General Info Date of Service: 10/11/19 Admission Dx/Problem (Free Text: Shortness of breath Weakness Syncope Functional Status: Reports: Pain Controlled (does have exacerbations of pain in his back at times), Tolerating Diet, Ambulating - Review of Systems General: Reports: Weakness, Fatigue, Malaise HEENT: Reports: Sinus Congestion, Rhinitis Pulmonary: Reports: Cough. Denies: Shortness of Breath Cardiovascular: Reports: Edema. Denies: Chest Pain, Lightheadedness Gastrointestinal: Denies: Abdominal Pain, Nausea, Vomiting Genitourinary: Reports: No Symptoms Musculoskeletal: Reports: Back Pain, Joint Pain Skin: Reports: No Symptoms Neurological: Reports: Syncope, Weakness - Patient Data Vitals - Most Recent: Last Vital Signs Temp 96.8 F 10/11/19 07:55 Pulse 76 10/11/19 07:55 Resp 18 10/11/19 07:55 BP 114/56 L 10/11/19 07:55 Pulse Ox 96 10/11/19 07:55 Weight - Most Recent: 194 lb 9.6 oz I&O - Last 24 hours: Intake & Output 10/10/19 10/11/19 10/11/19 22:59 06:59 14:59 Intake Total 1000 Balance 1000 Lab Results - Last 24 hrs: Laboratory Results - last 24 hr 10/11/19 10/11/19 10/11/19 Range/Units 06:50 06:50 06:50 WBC 7.8 (5.0-10.0) 10^3/uL RBC 2.77 L (4.50-6.00) 10^6/uL Hgb 8.4 L (14.0-18.0) g/dL Hct 26.1 L (40.0-54.0) % MCV 94.2 H (82.0-94.0) fL MCH 30.3 (27.0-32.0) pg MCHC 32.2 L (33.0-38.0) g/dL RDW Coeff of Cristina 14.9 (11.0-15.0) % Plt Count 137 L (150-400) 10^3/uL Neut % (Auto) 52.3 (35-85) % Lymph % (Auto) 30.7 (10-55) % [place] % (Auto) 12.7 (0-16) % Eos % (Auto) 3.9 (0-5) % Baso % (Auto) 0.4 (0-3) % Neut # (Auto) 4.07 (1.80-7.00) 10^3/uL Lymph # (Auto) 2.39 (1.00-4.80) 10^3/uL [place] # (Auto) 0.99 H (0.00-0.80) 10^3/uL Eos # (Auto) 0.30 (0.00-0.45) 10^3/uL Baso # (Auto) 0.03 10^3/uL Sodium 141 (136-145) mEq/L Potassium 4.3 (3.5-5.0) mEq/L Chloride 107 H (98-106) mEq/L Carbon Dioxide 28 (21-32) mmol/L BUN 21 H (7-18) mg/dL Creatinine 1.3 (0.7-1.3) mg/dL Est Cr Clr Drug Dosing 45.60 mL/min Estimated GFR (MDRD) 52 L (>=60) mL/min Glucose 92 D (75-99) mg/dL Calcium 8.0 L (8.4-10.1) mg/dL C-Reactive Protein 5.9 H (0.2-0.8) mg/dL Vitamin B12 605 (193-986) PG/ML Folate 15.0 (>8.6) NG/ML Med Orders - Current: Current Medications Discontinued Medications Acetaminophen (Tylenol) 650 mg PO Q4H PRN PRN Reason: Pain (Mild 1-3)/fever Last Admin: 10/09/19 18:41 Dose: 650 mg Hydrocodone Bitart/Acetaminophen ([place] 325-5 Mg) 1 tab PO ONETIME ONE Stop: 10/09/19 22:01 Last Admin: 10/09/19 22:24 Dose: 1 tab Hydrocodone Bitart/Acetaminophen ([place] 325-5 Mg) 1 tab PO Q6H PRN PRN Reason: Pain Last Admin: 10/11/19 08:12 Dose: 1 tab Allopurinol (Zyloprim) 300 mg PO DAILY PRN PRN Reason: Other Ceftriaxone Sodium (Rocephin) 1 gm IVPUSH Q24H [facility] Last Admin: 10/10/19 10:18 Dose: 1 gm Enoxaparin Sodium (Lovenox) 80 mg SUBCUT Q12H [facility] Last Admin: 10/09/19 02:32 Dose: 80 mg Enoxaparin Sodium (Lovenox) 30 mg SUBCUT Q24H [facility] Last Admin: 10/10/19 12:48 Dose: 30 mg Sodium Chloride (Sodium Chloride 0.45%) 1,000 mls @ 75 mls/hr IV ASDIRECTED [facility] Last Admin: 10/10/19 19:57 Dose: 75 mls/hr Azithromycin 500 mg/ Sodium (Chloride) 250 mls @ 250 mls/hr IV Q24H [facility] Last Admin: 10/10/19 11:13 Dose: 250 mls/hr Iopamidol (Isovue-370 (76%)) 100 ml IVPUSH ONETIME ONE Stop: 10/09/19 08:29 Last Admin: 10/09/19 09:38 Dose: 100 ml Levothyroxine Sodium (Synthroid) 100,000 mcg PO DAILY [facility] Last Admin: 10/09/19 08:43 Dose: Not Given Levothyroxine Sodium (Synthroid) 100 mcg PO ACBREAKFAST [facility] Last Admin: 10/11/19 07:42 Dose: 100 mcg Non-Formulary Medication (Midodrine [Midodrine]) 5 mg PO BID@0600,1200 [facility] Last Admin: 10/09/19 08:42 Dose: Not Given Midodrine [Midodrine (] 5 MgOwn Med) 5 mg PO BID@0800,1300 [facility] Last Admin: 10/11/19 07:45 Dose: 5 mg Ondansetron HCl (Zofran Odt) 4 mg PO Q4H PRN PRN Reason: nausea, able to take PO Last Admin: 10/08/19 16:13 Dose: 4 mg Ondansetron HCl (Zofran) 4 mg IVPUSH Q6H PRN PRN Reason: Nausea Last Admin: 10/09/19 23:44 Dose: 4 mg Sodium Chloride (Saline Flush) 10 ml FLUSH ASDIRECTED PRN PRN Reason: Keep Vein Open - Exam General: Reports: Alert, Oriented HEENT: Reports: Mucous Membr. Moist/[place] Neck: Reports: Supple Lungs: Reports: Normal Respiratory Effort, Rhonchi Cardiovascular: Reports: Regular Rate, Regular Rhythm GI/Abdominal Exam: Normal Bowel Sounds, Soft, Non-Tender Extremities: Normal Inspection, Pedal Edema (1+) Skin: Reports: Warm, Dry Neurological: Reports: No New Focal Deficit
== END 2019-10-11 08:10 | disposition swing bed (61) | DRG 178 ==
LOC: CC.ED 10:10 → UNDOADMIN 12:09 → CC.MS 12:09
PROVIDERS: ADMIT Physician Assistant Medical; ATTEND Family Medicine
DX: J15.6 Pneumonia due to other Gram-negative bacteria (principal); R53.1 Weakness; R06.02 Shortness of breath; I95.1 Orthostatic hypotension; H91.90 Unspecified hearing loss, unspecified ear; H54.7 Unspecified visual loss; N17.9 Acute kidney failure, unspecified; N18.9 Chronic kidney disease, unspecified; R55 Syncope and collapse; I50.9 Heart failure, unspecified; E03.9 Hypothyroidism, unspecified; M10.9 Gout, unspecified; Z85.038 Personal history of other malignant neoplasm of large intestine; Z79.890 Hormone replacement therapy; Z79.899 Other long term (current) drug therapy
CPT/HCPCS: 36415; 71045; 71275; 80048; 80053; 81001; 82607; 82746; 83880; 84484; 85025; 85027; 85379; 86140; 93005; 93010; 97010-GP; 97110-GP; 97161-GP; 99285-25; A9270-GY; G0365; J0456; J0696; J1650; J2405; J7030; J7050; Q9967

== ENCOUNTER 2019-10-11 07:46 | Inpatient (IN) | payer MEDICARE, BC ==
[2019-10-11] MEDS ORDERED: Ondansetron 4 MG Tab.DIS PO PRN (13:23)
[2019-10-11] MEDS ORDERED: Sodium Chloride 0.9% 10 ML Syringe FLUSH PRN ×2 (13:23)
[2019-10-11] MEDS ORDERED: Acetaminophen 325 MG Tab PO PRN (13:23)
[2019-10-11] MEDS ORDERED: Ondansetron 4 MG/2 ML SDV IVPUSH PRN (13:23)
[2019-10-11] MEDS ORDERED: Enoxaparin 30 MG/0.3 ML Syringe SUBCUT SCH (13:30)
[2019-10-11] MEDS: cefTRIAXone 1 GM Vial IVPUSH SCH (15:18)
[2019-10-11] MEDS: Azithromycin 500 MG in Sodium Chloride 0.9% 250 ML IV SCH (15:18)
[2019-10-11] MEDS: Enoxaparin 40 MG/0.4 ML Syringe SUBCUT SCH (15:18)
[2019-10-11] MEDS: Acetaminophen/HYDROcodone 325-5 MG Tab PO PRN (20:39)
[2019-10-12] MEDS: Acetaminophen/HYDROcodone 325-5 MG Tab PO PRN ×3 (02:51→15:21)
[2019-10-12] MEDS: Levothyroxine 100 MCG Tab PO SCH (06:52)
[2019-10-12] MEDS: MIDODRINE 5 MG PO SCH ×2 (08:22→12:25)
[2019-10-12] MEDS: Docusate Sodium 100 MG Cap PO SCH (08:50)
[2019-10-12] MEDS: Polyethylene Glycol 3350 Powder 17 GM Packet PO SCH (12:21)
[2019-10-12] MEDS: Azithromycin 500 MG in Sodium Chloride 0.9% 250 ML IV SCH (15:20)
[2019-10-12] MEDS: Enoxaparin 40 MG/0.4 ML Syringe SUBCUT SCH (15:22)
[2019-10-12] MEDS: cefTRIAXone 1 GM Vial IVPUSH SCH (15:23)
[2019-10-13] MEDS: Acetaminophen/HYDROcodone 325-5 MG Tab PO PRN ×2 (04:16→21:32)
[2019-10-13] MEDS: Levothyroxine 100 MCG Tab PO SCH (06:39)
[2019-10-13] MEDS: Docusate Sodium 100 MG Cap PO SCH (08:04)
[2019-10-13] MEDS: MIDODRINE 5 MG PO SCH ×2 (08:04→12:31)
[2019-10-13] MEDS: Polyethylene Glycol 3350 Powder 17 GM Packet PO SCH (09:11)
[2019-10-13] MEDS: cefTRIAXone 1 GM Vial IVPUSH SCH (16:33)
[2019-10-13] MEDS: Azithromycin 500 MG in Sodium Chloride 0.9% 250 ML IV SCH (16:34)
[2019-10-13] MEDS: Enoxaparin 40 MG/0.4 ML Syringe SUBCUT SCH (17:10)
[2019-10-14] MEDS: Levothyroxine 100 MCG Tab PO SCH (06:35)
[2019-10-14] MEDS: Polyethylene Glycol 3350 Powder 17 GM Packet PO SCH (07:38)
[2019-10-14] MEDS: Docusate Sodium 100 MG Cap PO SCH (07:38)
[2019-10-14] MEDS: MIDODRINE 5 MG PO SCH ×3 (07:39→19:58)
[2019-10-14] MEDS: Enoxaparin 40 MG/0.4 ML Syringe SUBCUT SCH (14:50)
[2019-10-14] MEDS: Azithromycin 500 MG in Sodium Chloride 0.9% 250 ML IV SCH (14:51)
[2019-10-14] MEDS: cefTRIAXone 1 GM Vial IVPUSH SCH (14:51)
[2019-10-14] MEDS: Acetaminophen/HYDROcodone 325-5 MG Tab PO PRN (21:14)
[2019-10-15] MEDS: Levothyroxine 100 MCG Tab PO SCH (06:13)
[2019-10-15] MEDS: MIDODRINE 5 MG PO SCH ×3 (07:48→19:49)
[2019-10-15] MEDS: Docusate Sodium 100 MG Cap PO SCH (07:49)
[2019-10-15] MEDS: Polyethylene Glycol 3350 Powder 17 GM Packet PO SCH (07:49)
--- NOTE | 2019-10-15 09:11 | PCM.SN ---
- Free Text/Narrative Note: Patient has continued to have near syncope or syncopal episodes. Chart reviewed , obtained records from [facility]. Did have repeat echo in July that shows good ejection fracture. Moderate to severe aortic stenosis. Dr. Guadarrama's note from that visit reviewed. Did start Minodrine BID at that visit. Family does not feel that has helped all that well. Did contact Dr. Guadarrama about patient status. Does not feel that aortic stenosis the cause of syncope, may be contributing. 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 Does feel he needs help available to him as a result. Suggested increasing Minodrine to TID, wear thigh high jesus manuel hose. Plan is for transfer to [facility] later this week. Called daughter Judy and informed her of consult.
[2019-10-15] MEDS: Enoxaparin 40 MG/0.4 ML Syringe SUBCUT SCH (14:51)
[2019-10-15] MEDS: cefTRIAXone 1 GM Vial IVPUSH SCH (14:52)
[2019-10-15] MEDS: Azithromycin 500 MG in Sodium Chloride 0.9% 250 ML IV SCH (14:52)
[2019-10-15] MEDS: Acetaminophen/HYDROcodone 325-5 MG Tab PO PRN (18:04)
[2019-10-16] MEDS: Docusate Sodium 100 MG Cap PO SCH (07:22)
[2019-10-16] MEDS: MIDODRINE 5 MG PO SCH ×3 (07:22→19:48)
[2019-10-16] MEDS: Levothyroxine 100 MCG Tab PO SCH (07:22)
[2019-10-16] MEDS: Polyethylene Glycol 3350 Powder 17 GM Packet PO SCH (07:22)
[2019-10-16] MEDS: Enoxaparin 40 MG/0.4 ML Syringe SUBCUT SCH (14:09)
[2019-10-16] MEDS: cefTRIAXone 1 GM Vial IVPUSH SCH (15:03)
[2019-10-16] MEDS: Azithromycin 500 MG in Sodium Chloride 0.9% 250 ML IV SCH (15:03)
[2019-10-16] MEDS: Acetaminophen/HYDROcodone 325-5 MG Tab PO PRN (15:53)
[2019-10-17] MEDS: Acetaminophen/HYDROcodone 325-5 MG Tab PO PRN ×2 (01:25→08:07)
[2019-10-17] MEDS: Levothyroxine 100 MCG Tab PO SCH (08:03)
[2019-10-17] MEDS: Docusate Sodium 100 MG Cap PO SCH (08:03)
[2019-10-17] MEDS: MIDODRINE 5 MG PO SCH (08:04)
[2019-10-17] MEDS: Polyethylene Glycol 3350 Powder 17 GM Packet PO SCH (08:04)
--- NOTE | 2019-10-17 09:18 | PCM.DCSUM1 ---
Discharge Summary - Hospital Course Free Text/Narrative:: Lebron is an 84 year old male who presented to ER after a syncopal episode at home. Had not been feeling well over the last 3 days with increased cough, malaise, and feeling more short of breath. Has been having issues with back pain, muscle spasms and weakness in his legs. Has a history of orthostatic hypotension dating back over a year, does pass out from time to time. Work up in the ER included EKG which was normal. D-Dimer was elevated at 4.77 but due to creatinine being high at 1.7, CTA had to wait a day to be done after IV fluids were given. Was given Lovenox to cover. CTA was negative for PE, was noted to have bilateral pneumonia. Started on IV Rocephin and Zithromax. Patient did have several syncopal episodes while in acute care. No telemetry or blood pressure changes noted while occurred, always related to being up and ambulating. Family concerned about ability to care for self at home due to this as well as exacerbated by being ill, transferred to swing bed with potential for fdc placement. Diagnosis: Stroke: No Modified Farooq Scale: No Symptoms at All Modified Farooq Scale Score: 0 - Discharge Data Discharge Date: 10/17/19 Discharge Disposition: DC/Tfer to SNF 03 Condition: Fair - Referral to Home Health Primary Care Physician: Chucho Cunha MD - Patient Summary/Data Complications: none Consults: Consultations 10/11/19 13:23 PT Evaluation and Treatment [CONS] Routine Hospital Course: Patient stable. Had one near syncopal episode over the weekend, once sat down, symptoms improved. Cough is loose now, productive at times. Patient relates chest feeling better. No edema. Still has fine expiratory wheezing noted. Afebrile. Labs are stable. Did contact Dr. Guadarrama in regards to syncopal episodes. States likely related to autonomic nervous system so needs to be extra cautious with movements as likely will not be able to resolve this. Suggested increasing minodrine to TID which was accomplished. Family aware. Does have aortic stenosis but does not yet meet criteria for TVAR. Will transfer to the [facility] for ongoing physical therapy and assist for transfers. Continue oral antibiotics. - Patient Instructions Diet: Usual Diet as Tolerated Activity: As Tolerated - Discharge Plan *PRESCRIPTION DRUG MONITORING PROGRAM REVIEWED*: Not Applicable *COPY OF PRESCRIPTION DRUG MONITORING REPORT IN PATIENT ALISIA: Not Applicable Prescriptions/Med Rec: Acetaminophen/HYDROcodone [Carmel 325-5 MG] 1 tab PO Q6H PRN #60 tablet PRN Reason: Pain Cefuroxime Axetil [Ceftin] 250 mg PO BID #10 tablet Patient's Own Medication [Ptom] 5 mg PO TID #90 each Polyethylene Glycol 3350 [MiraLAX] 17 gm PO DAILY #30 packet Home Medications: Home Meds Levothyroxine [Synthroid] 100 mcg PO DAILY 10/01/18 [History] Acetaminophen [Tylenol] 325 mg PO Q4H PRN 10/08/19 [History] allopurinoL [Zyloprim] 300 mg PO DAILY PRN 10/08/19 [History] Acetaminophen/HYDROcodone [Carmel 325-5 MG] 1 tab PO Q6H PRN #60 tablet 10/17/19 [Rx] Cefuroxime Axetil [Ceftin] 250 mg PO BID #10 tablet 10/17/19 [Rx] Patient's Own Medication [Ptom] 5 mg PO TID #90 each 10/17/19 [Rx] Polyethylene Glycol 3350 [MiraLAX] 17 gm PO DAILY #30 packet 10/17/19 [Rx] - Discharge Summary/Plan Comment DC Time >30 min.: Yes Discharge Summary/Plan Comment: discharge to [facility] Time with patient and family 15 minutes Time for orders 15 minutes Time for documentation 10 minutes - General Info Date of Service: 10/17/19 Admission Dx/Problem (Free Text: Syncope bilateral pneumonia Functional Status: Reports: Pain Controlled, Tolerating Diet, Ambulating - Review of Systems General: Reports: Weakness, Fatigue HEENT: Reports: No Symptoms Pulmonary: Reports: Cough, Sputum. Denies: Shortness of Breath Cardiovascular: Reports: Lightheadedness. Denies: Chest Pain, Edema Gastrointestinal: Reports: Abdominal Pain. Denies: Nausea, Vomiting Genitourinary: Reports: No Symptoms Musculoskeletal: Reports: Back Pain Skin: Reports: No Symptoms Neurological: Reports: Weakness - Patient Data Vitals - Most Recent: Last Vital Signs Temp 98.8 F 10/17/19 08:00 Pulse 78 10/17/19 08:00 Resp 18 10/17/19 08:00 BP 89/54 L 10/17/19 08:00 Pulse Ox 96 10/17/19 08:00 Weight - Most Recent: 208 lb Med Orders - Current: Current Medications Acetaminophen (Tylenol) 650 mg PO Q4H PRN PRN Reason: Pain (Mild 1-3)/fever Hydrocodone Bitart/Acetaminophen ([place]el 325-5 Mg) 1 tab PO Q6H PRN PRN Reason: Pain Last Admin: 10/17/19 08:07 Dose: 1 tab Ceftriaxone Sodium (Rocephin) 1 gm IVPUSH Q24H [facility] Last Admin: 10/16/19 15:03 Dose: 1 gm Docusate Sodium (Colace) 100 mg PO DAILY [facility] Last Admin: 10/17/19 08:03 Dose: 100 mg Enoxaparin Sodium (Lovenox) 40 mg SUBCUT Q24H [facility] Last Admin: 10/16/19 14:09 Dose: 40 mg Azithromycin 500 mg/ Sodium (Chloride) 250 mls @ 250 mls/hr IV Q24H [facility] Last Admin: 10/16/19 15:03 Dose: 250 mls/hr Levothyroxine Sodium (Synthroid) 100 mcg PO ACBREAKFAST [facility] Last Admin: 10/17/19 08:03 Dose: 100 mcg Ondansetron HCl (Zofran Odt) 4 mg PO Q4H PRN PRN Reason: nausea, able to take PO Ondansetron HCl (Zofran) 4 mg IVPUSH Q6H PRN PRN Reason: Nausea Midodrine 5 Mg Tab* Patient's Own Medication 1 Each* 0 each PO TID [facility] Last Admin: 10/17/19 08:04 Dose: 1 each Polyethylene Glycol (Miralax) 17 gm PO DAILY [facility] Last Admin: 10/17/19 08:04 Dose: 17 gm Sodium Chloride (Saline Flush) 10 ml FLUSH ASDIRECTED PRN PRN Reason: Keep Vein Open Sodium Chloride (Saline Flush) 10 ml FLUSH ASDIRECTED PRN PRN Reason: Keep Vein Open Discontinued Medications Enoxaparin Sodium (Lovenox) 30 mg SUBCUT Q24H [facility] Last Admin: 10/11/19 14:23 Dose: Not Given Midodrine 5 Mg Tab * (Pt Own Med*) 0 each PO BID@0800,1300 [facility] Last Admin: 10/14/19 14:42 Dose: 1 each - Exam Quality Assessment: Reports: Supplemental Oxygen General: Reports: Alert, Oriented HEENT: Reports: Mucous Membr. Moist/[place] Neck: Reports: Supple Lungs: Reports: Decreased Breath Sounds, Wheezing Cardiovascular: Reports: Regular Rate, Regular Rhythm GI/Abdominal Exam: Normal Bowel Sounds, Soft, Non-Tender Extremities: Normal Inspection, No Pedal Edema Skin: Reports: Warm, Dry Neurological: Reports: No New Focal Deficit
== END 2019-10-17 10:28 | DRG 312 ==
LOC: CC.MS 07:46 → OBSVTOIN 07:46 → INTOOBSV 07:46 → CC.MS 08:10 → UNDOADMIN 08:10
PROVIDERS: ADMIT Family Medicine; ATTEND Family Medicine
DX: R55 Syncope and collapse (principal); J15.6 Pneumonia due to other Gram-negative bacteria; I35.0 Nonrheumatic aortic (valve) stenosis; R53.1 Weakness; Z79.890 Hormone replacement therapy
CPT/HCPCS: 97110-GP; A9270-GY; J0456; J0696; J1650; J7050

== ENCOUNTER 2021-01-21 11:14 | Inpatient (IN) | payer MEDICARE, BC ==
[2021-01-21 11:44] LABS: CHLORIDE,CL 102 mEq/L (98-106); SODIUM,NA 144 mEq/L (136-145)
[2021-01-21] MEDS ORDERED: Sodium Chloride 0.9% 10 ML Syringe FLUSH PRN (14:34)
[2021-01-21] MEDS: MIDODRINE 5 MG PO SCH (17:19)
[2021-01-21] MEDS: Enoxaparin 40 MG/0.4 ML Syringe SUBCUT SCH (19:50)
[2021-01-21] MEDS: Furosemide 40 MG/4 ML VIAL IVPUSH SCH (19:51)
[2021-01-21] MEDS ORDERED: Non-Formulary Medication 1 Each (Midodrine [Midodrine] 5 MG Tablet) PO SCH (20:00)
[2021-01-22] MEDS: Levothyroxine 100 MCG Tab PO SCH (06:48)
[2021-01-22] MEDS: MIDODRINE 5 MG PO SCH ×3 (07:21→17:38)
[2021-01-22] MEDS: Furosemide 40 MG/4 ML VIAL IVPUSH SCH (07:45)
[2021-01-22] MEDS: Aspirin 81 MG Tab.EC PO SCH (07:55)
[2021-01-22] MEDS: Clopidogrel 75 MG Tab PO SCH (07:55)
[2021-01-22] MEDS: atorvaSTATin 20 MG Tab PO SCH (07:55)
[2021-01-22] MEDS ORDERED: Polyethylene Glycol 3350 Powder 17 GM Packet PO SCH (08:00)
--- NOTE | 2021-01-22 17:47 | PN ---
DATE: 01/22/2021 S: Lebron has had stable vital signs since admission. Blood pressures are fine. He saturating around mid 90s on 2 to 2.5 L. He was admitted yesterday after cardiology consult for his ongoing shortness of breath. He had a routine followup with Dr. Guadarrama for a TAVR procedure. He had been complaining of increasing shortness of breath and had some bibasilar crackles. On halfway rounds, I started him on a daily dose of Lasix, he had not improved. Chest x- ray showed right-sided pleural effusion with some possible bulky lesion in the right side and left chest. CT scan shows likely malignancy and a malignant effusion. He does have some CHF, but his edema is improved. O: LUNGS: On exam, he continues to have dullness to percussion on his right base, crackles on his left base, dullness to auscultation on his right. CARDIAC: Tones are regular. ABDOMEN: Soft. He does not have any abdominal pain, and good bowel sounds are noted. EXTREMITIES: Scant ankle edema seen at this time. ASSESSMENT: 1. STATUS POST TRANSCATHETER AORTIC VALVE REPLACEMENT PROCEDURE WITH MILD CONGESTIVE HEART FAILURE, IMPROVED. 2. 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 3. ABNORMAL CT CHEST WITH LIKELY NEOPLASTIC PROCESS. P: Family did come in today. We had a long discussion with daughter and granddaughter, with the patient. His is currently in with [facility] with advanced dementia. Discussion with Lebron was done. Went through options including oncology consultation, possibility of the need for chemo and/or radiation should he desire. He declines at this time. Both him and family desire comfort measures at this point. We did discuss the need should he want for therapeutic thoracentesis and that is something he is interested in. We will plan on hospice cares once he gets back to [facility]. We will see how he responds to Lasix this weekend. We will arrange for the ability to have ultrasound-guided thoracentesis on Monday once ultrasound available and the patient is comfortable with that. Family are comfortable as well. KAREN/NIRALI /[id number]
[2021-01-22] MEDS: Enoxaparin 40 MG/0.4 ML Syringe SUBCUT SCH (20:05)
--- NOTE | 2021-01-22 21:16 | HP ---
CHIEF COMPLAINT: Shortness of breath. HISTORY: Lebron is an 85-year-old, well known to me, currently resides at [facility]. He recently underwent a TAVR procedure in [place] for his aortic valve, which was done I believe in July. The patient has not had marked improvement at this point in his breathing. Put him on a dose of Lasix a few weeks ago and he has had minimal improvement. He had a routine followup with Dr. Guadarrama, where chest x-ray showed effusion on the right, smaller on the left because he had known pulmonary nodules from a CT scan of his chest in July. Repeat CT scan was done on the date of admission, which showed likely neoplastic process in both left and right lungs with seeding along the hemidiaphragm as well and he was ultimately admitted for cares. His BNP was up slightly. Otherwise, his labs were stable. His past medical history includes a history of hypothyroidism, hyperlipidemia. He has actually had issues with hypotension. He has known distant history of colon CA. ALLERGIES: NONE. MEDICATIONS: See report. SOCIAL HISTORY: The patient resides with his at [facility]. A nonsmoker and nondrinker. She suffers from dementia. REVIEW OF SYSTEMS: Negative other than the patient's feeling of shortness of breath mostly with exertion. At rest, he is essentially asymptomatic and denies any pain. PHYSICAL EXAMINATION: HEENT: Grossly benign. NECK: His neck veins are nondistended. LUNGS: Sounds are diminished in the right base. There are crackles in the left. Overall diminished air movement throughout. CARDIAC: Tones are regular. Aortic murmur heard throughout precordium. ABDOMEN: Soft without any obvious ascites. EXTREMITIES: Lower extremities have trace edema. Pulses are palpable. LAB: Chest x-ray and EKG are reviewed as are patient's admission labs which show a stable creatinine. CBC unremarkable. His proBNP is 1000. ASSESSMENT: 1. SHORTNESS OF BREATH. 2. BILATERAL PLEURAL EFFUSIONS. 3. ABNORMAL CT SCAN SHOWING LIKELY NEOPLASTIC PROCESS, BILATERAL LUNGS. 4. CONGESTIVE HEART FAILURE, STATUS POST TAVR PROCEDURE. PLAN: We will admit the patient for IV Lasix. We will discuss options with both him and his family. He would be a candidate for thoracentesis for comfort measures if nothing else to improve his breathing. Right now, he is satting at 95% on 2 L, and we will continue to monitor this. We will try to arrange ultrasound for ultrasound-guided thoracentesis and patient desires that. KAREN/NIRALI /[id number]
[2021-01-23] MEDS: Levothyroxine 100 MCG Tab PO SCH (07:02)
[2021-01-23] MEDS: MIDODRINE 5 MG PO SCH ×3 (07:02→17:15)
[2021-01-23] MEDS: Furosemide 40 MG/4 ML VIAL IVPUSH SCH (07:29)
[2021-01-23] MEDS: Aspirin 81 MG Tab.EC PO SCH (07:32)
[2021-01-23] MEDS: atorvaSTATin 20 MG Tab PO SCH (07:33)
[2021-01-23] MEDS: Clopidogrel 75 MG Tab PO SCH (07:33)
--- NOTE | 2021-01-23 11:27 | PCM.PN ---
- General Info Date of Service: 01/23/21 Admission Dx/Problem (Free Text): CHF following aortic valve replacement Likely malignant effusion, CT suggestive of neoplastic process Subjective Update: Patient is resting comfortably this am. Is feeling short of breath yet, worse with activity but slightly better than on admission. Appetite is good. Patient relates that likely has lung cancer and it's "causing fluid build up in my lung but too old to fight that". Had family conference yesterday to discuss these findings and possible treatment for it. He does not want to proceed with any on cology evaluation or treatment. Blood pressure is mildly high at rest, does have history of orthostatic hypotension, on Minodrine. Does get lightheaded when up at times, history of syncope. Functional Status: Reports: Pain Controlled, Tolerating Diet, Ambulating - Review of Systems General: Reports: Weakness, Fatigue. Denies: Fever, Malaise, Chills HEENT: Reports: No Symptoms Pulmonary: Reports: Shortness of Breath. Denies: Cough Cardiovascular: Reports: Edema, Lightheadedness. Denies: Chest Pain Gastrointestinal: Denies: Abdominal Pain, Nausea, Vomiting Genitourinary: Reports: No Symptoms Musculoskeletal: Reports: No Symptoms Skin: Reports: No Symptoms Neurological: Reports: Weakness - Patient Data Vitals - Most Recent: Last Vital Signs Temp 98.0 F 01/23/21 07:54 Pulse 68 01/23/21 07:54 Resp 20 01/23/21 07:54 BP 145/74 H 01/23/21 07:54 Pulse Ox 95 01/23/21 07:54 Weight - Most Recent: 191 lb 3.2 oz Med Orders - Current: Current Medications Aspirin (Aspirin 81 Mg Tab.Ec) 81 mg PO DAILY [facility] Last Admin: 01/23/21 07:32 Dose: 81 mg Documented by: Atorvastatin Calcium (Atorvastatin 20 Mg Tab) 20 mg PO DAILY [facility] Last Admin: 01/23/21 07:33 Dose: 20 mg Documented by: Clopidogrel Bisulfate (Clopidogrel 75 Mg Tab) 75 mg PO DAILY [facility] Last Admin: 01/23/21 07:33 Dose: 75 mg Documented by: Enoxaparin Sodium (Enoxaparin 40 Mg/0.4 Ml Syringe) 40 mg SUBCUT Q24H [facility] Last Admin: 01/22/21 20:05 Dose: 40 mg Documented by: Furosemide (Furosemide 40 Mg/4 Ml Vial) 40 mg IVPUSH Q24H [facility] Last Admin: 01/23/21 07:29 Dose: 40 mg Documented by: Levothyroxine Sodium (Levothyroxine 100 Mcg Tab) 100 mcg PO ACBRK [facility] Last Admin: 01/23/21 07:02 Dose: 100 mcg Documented by: Midodrine 5 Mg Tab * (*Own Med) 0 tab PO TID@0800,1200,1800 [facility] Last Admin: 01/23/21 07:02 Dose: 2 tab Documented by: Polyethylene Glycol (Polyethylene Glycol 3350 Powder 17 Gm Packet) 17 gm PO Q48H [facility] Sodium Chloride (Sodium Chloride 0.9% 10 Ml Syringe) 10 ml FLUSH ASDIRECTED PRN PRN Reason: Keep Vein Open Discontinued Medications Furosemide (Furosemide 40 Mg/4 Ml Vial) 40 mg IVPUSH BID [facility] Last Admin: 01/22/21 07:45 Dose: 40 mg Documented by: Non-Formulary Medication (Midodrine [Midodrine]) 2 tab PO BEDTIME [facility] Polyethylene Glycol (Polyethylene Glycol 3350 Powder 17 Gm Packet) 17 gm PO DAILY [facility] Last Admin: 01/22/21 07:53 Dose: 17 gm Documented by: - Exam General: Alert, Oriented HEENT: Mucous Membr. Moist/[place] Neck: Supple Lungs: Decreased Breath Sounds Cardiovascular: Regular Rate, Regular Rhythm GI/Abdominal Exam: Normal Bowel Sounds, Soft, Non-Tender Extremities: Normal Inspection, Pedal Edema (1+ edema to lower legs) Skin: Warm, Dry Neurological: No New Focal Deficit - Patient Data Result Diagrams: 01/21/21 11:16 01/21/21 11:16 Sepsis Event Note - Evaluation Sepsis Screening Result: No Definite Risk - Focused Exam Vital Signs: Vital Signs Temp Temp Pulse Resp BP Pulse Ox 01/23/21 07:54 98.0 F 68 20 145/74 H 95 01/23/21 04:00 70 01/23/21 00:00 97.9 F 73 18 115/57 L 95 - Problem List & Annotations (1) CHF (congestive heart failure), NYHA class II SNOMED Code(s): 096972050, 200145306 Code(s): I50.9 - HEART FAILURE, UNSPECIFIED Status: Acute Priority: High Current Visit: Yes Qualifiers: Congestive heart failure type: systolic Congestive heart failure chronicity: acute on chronic Qualified Code(s): I50.23 - Acute on chronic systolic (congestive) heart failure (2) Malignant pleural effusion SNOMED Code(s): 711839286 Code(s): J91.0 - MALIGNANT PLEURAL EFFUSION Status: Acute Priority: High Current Visit: Yes (3) Weakness SNOMED Code(s): 58921735 Code(s): R53.1 - WEAKNESS Status: Acute Priority: High Current Visit: Yes - Problem List Review Problem List Initiated/Reviewed/Updated: Yes - Assessment Assessment:: Acute on Chronic CHF, s/p aortic valve replacement Malignant Effusion, pulmonary nodules - Plan Plan:: Will continue to diurese patient. Plan for thoracentesis on Monday with Dr. Cunha. Continue to provide 1 on 1 care when up due to history of orthostatic hypotension. Repeat labs in am.
[2021-01-23] MEDS: Enoxaparin 40 MG/0.4 ML Syringe SUBCUT SCH (19:37)
[2021-01-24] MEDS: MIDODRINE 5 MG PO SCH ×3 (07:06→17:07)
[2021-01-24] MEDS: Levothyroxine 100 MCG Tab PO SCH (07:06)
[2021-01-24] MEDS: Furosemide 40 MG/4 ML VIAL IVPUSH SCH (07:27)
[2021-01-24] MEDS: atorvaSTATin 20 MG Tab PO SCH (07:30)
[2021-01-24] MEDS: Aspirin 81 MG Tab.EC PO SCH (07:30)
[2021-01-24] MEDS: Clopidogrel 75 MG Tab PO SCH (07:30)
[2021-01-24] MEDS ORDERED: Polyethylene Glycol 3350 Powder 17 GM Packet PO SCH (08:00)
--- NOTE | 2021-01-24 10:22 | PCM.PN ---
- General Info Date of Service: 01/24/21 Admission Dx/Problem (Free Text): CHF following aortic valve replacement Likely malignant effusion, CT suggestive of neoplastic process Subjective Update: Hernandez is up in chair, resting comfortably. Continues to feel weak, short of breath. "No worse, no better". Does feel lightheaded when up, blood pressure did drop to 84/38 when up during the night which is common for him. Admits appetite is good. Afebrile. Functional Status: Reports: Pain Controlled, Tolerating Diet, Ambulating, Urinating - Review of Systems General: Reports: Weakness, Fatigue, Malaise HEENT: Reports: No Symptoms Pulmonary: Reports: Shortness of Breath. Denies: Cough Cardiovascular: Reports: Edema, Lightheadedness. Denies: Chest Pain Gastrointestinal: Denies: Abdominal Pain, Decreased Appetite, Nausea, Vomiting Genitourinary: Reports: No Symptoms Musculoskeletal: Reports: No Symptoms Skin: Reports: No Symptoms - Patient Data Vitals - Most Recent: Last Vital Signs Temp 98.0 F 01/24/21 08:00 Pulse 70 01/24/21 08:00 Resp 20 01/24/21 08:00 BP 140/68 01/24/21 08:00 Pulse Ox 94 L 01/24/21 08:00 Weight - Most Recent: 191 lb 3.2 oz Lab Results Last 24 Hours: Laboratory Results - last 24 hr 01/24/21 01/24/21 Range/Units 05:11 05:11 WBC 13.1 H (5.0-10.0) 10^3/uL RBC 4.11 L (4.50-6.00) 10^6/uL Hgb 11.2 L (14.0-18.0) g/dL Hct 36.9 L (40.0-54.0) % MCV 89.8 (82.0-94.0) fL MCH 27.3 (27.0-32.0) pg MCHC 30.4 L (33.0-38.0) g/dL RDW Coeff of Cristina 18.5 H (11.0-15.0) % Plt Count 426 H (150-400) 10^3/uL Add Manual Diff Yes Neutrophils % (Manual) 67 (35-85) % Lymphocytes % (Manual) 16 L (21-55) % Monocytes % (Manual) 6 (2-12) % Eosinophils % (Manual) 10 H (0-5) % Basophils % (Manual) 1 (0-3) % Absolute Neutrophils 8.78 H (1.80-7.00) 10^3/uL Lymphocytes # (Manual) 2.10 (1.00-4.80) 10^3/uL Monocytes # (Manual) 0.79 (0.00-0.80) 10^3/uL Eosinophils # (Manual) 1.31 H (0.00-0.45) 10^3/uL Basophils # (Manual) 0.13 10^3/uL Sodium 144 (136-145) mEq/L Potassium 3.9 (3.5-5.0) mEq/L Chloride 104 (98-106) mEq/L Carbon Dioxide 35 H (21-32) mmol/L BUN 31 H (7-18) mg/dL Creatinine 1.3 (0.7-1.3) mg/dL Est Cr Clr Drug Dosing 43.44 mL/min Estimated GFR (MDRD) 52 L (>=60) mL/min Glucose 88 (75-99) mg/dL Calcium 9.2 (8.4-10.1) mg/dL C-Reactive Protein 2.1 H (0.2-0.8) mg/dL Med Orders - Current: Current Medications Aspirin (Aspirin 81 Mg Tab.Ec) 81 mg PO DAILY [facility] Last Admin: 01/24/21 07:30 Dose: 81 mg Documented by: Atorvastatin Calcium (Atorvastatin 20 Mg Tab) 20 mg PO DAILY [facility] Last Admin: 01/24/21 07:30 Dose: 20 mg Documented by: Clopidogrel Bisulfate (Clopidogrel 75 Mg Tab) 75 mg PO DAILY [facility] Last Admin: 01/24/21 07:30 Dose: 75 mg Documented by: Enoxaparin Sodium (Enoxaparin 40 Mg/0.4 Ml Syringe) 40 mg SUBCUT Q24H [facility] Last Admin: 01/23/21 19:37 Dose: 40 mg Documented by: Furosemide (Furosemide 40 Mg/4 Ml Vial) 40 mg IVPUSH Q24H [facility] Last Admin: 01/24/21 07:27 Dose: 40 mg Documented by: Levothyroxine Sodium (Levothyroxine 100 Mcg Tab) 100 mcg PO ACBRK [facility] Last Admin: 01/24/21 07:06 Dose: 100 mcg Documented by: Midodrine 5 Mg Tab * (*Own Med) 0 tab PO TID@0800,1200,1800 [facility] Last Admin: 01/24/21 07:06 Dose: 2 tab Documented by: Polyethylene Glycol (Polyethylene Glycol 3350 Powder 17 Gm Packet) 17 gm PO Q48H [facility] Last Admin: 01/24/21 07:30 Dose: 17 gm Documented by: Sodium Chloride (Sodium Chloride 0.9% 10 Ml Syringe) 10 ml FLUSH ASDIRECTED PRN PRN Reason: Keep Vein Open Discontinued Medications Furosemide (Furosemide 40 Mg/4 Ml Vial) 40 mg IVPUSH BID [facility] Last Admin: 01/22/21 07:45 Dose: 40 mg Documented by: Non-Formulary Medication (Midodrine [Midodrine]) 2 tab PO BEDTIME [facility] Polyethylene Glycol (Polyethylene Glycol 3350 Powder 17 Gm Packet) 17 gm PO DAILY [facility] Last Admin: 01/22/21 07:53 Dose: 17 gm Documented by: - Exam Quality Assessment: Supplemental Oxygen General: Alert, Oriented HEENT: Mucous Membr. Moist/[place] Neck: Supple Lungs: Decreased Breath Sounds, Crackles (LLL more pronounced today, faint crackles RLL) Cardiovascular: Regular Rate, Regular Rhythm GI/Abdominal Exam: Normal Bowel Sounds, Soft, Non-Tender Extremities: Normal Inspection, Pedal Edema (1+) Skin: Warm, Dry Neurological: No New Focal Deficit - Patient Data Lab Results Last 24 hrs: Laboratory Results - last 24 hr 01/24/21 01/24/21 Range/Units 05:11 05:11 WBC 13.1 H (5.0-10.0) 10^3/uL RBC 4.11 L (4.50-6.00) 10^6/uL Hgb 11.2 L (14.0-18.0) g/dL Hct 36.9 L (40.0-54.0) % MCV 89.8 (82.0-94.0) fL MCH 27.3 (27.0-32.0) pg MCHC 30.4 L (33.0-38.0) g/dL RDW Coeff of Cristina 18.5 H (11.0-15.0) % Plt Count 426 H (150-400) 10^3/uL Add Manual Diff Yes Neutrophils % (Manual) 67 (35-85) % Lymphocytes % (Manual) 16 L (21-55) % Monocytes % (Manual) 6 (2-12) % Eosinophils % (Manual) 10 H (0-5) % Basophils % (Manual) 1 (0-3) % Absolute Neutrophils 8.78 H (1.80-7.00) 10^3/uL Lymphocytes # (Manual) 2.10 (1.00-4.80) 10^3/uL Monocytes # (Manual) 0.79 (0.00-0.80) 10^3/uL Eosinophils # (Manual) 1.31 H (0.00-0.45) 10^3/uL Basophils # (Manual) 0.13 10^3/uL Sodium 144 (136-145) mEq/L Potassium 3.9 (3.5-5.0) mEq/L Chloride 104 (98-106) mEq/L Carbon Dioxide 35 H (21-32) mmol/L BUN 31 H (7-18) mg/dL Creatinine 1.3 (0.7-1.3) mg/dL Est Cr Clr Drug Dosing 43.44 mL/min Estimated GFR (MDRD) 52 L (>=60) mL/min Glucose 88 (75-99) mg/dL Calcium 9.2 (8.4-10.1) mg/dL C-Reactive Protein 2.1 H (0.2-0.8) mg/dL Result Diagrams: 01/24/21 05:11 01/24/21 05:11 Sepsis Event Note - Evaluation Sepsis Screening Result: No Definite Risk - Focused Exam Vital Signs: Vital Signs Temp Pulse Resp BP Pulse Ox 01/24/21 08:00 98.0 F 70 20 140/68 94 L 01/24/21 04:00 78 18 01/24/21 00:00 98.4 F 84 18 84/38 L 90 L - Problem List & Annotations (1) CHF (congestive heart failure), NYHA class II SNOMED Code(s): 588920856, 920712137 Code(s): I50.9 - HEART FAILURE, UNSPECIFIED Status: Acute Priority: High Current Visit: Yes Qualifiers: Congestive heart failure type: systolic Congestive heart failure chronicity: acute on chronic Qualified Code(s): I50.23 - Acute on chronic systolic (congestive) heart failure (2) Malignant pleural effusion SNOMED Code(s): 557602365 Code(s): J91.0 - MALIGNANT PLEURAL EFFUSION Status: Acute Priority: High Current Visit: Yes (3) Weakness SNOMED Code(s): 62944518 Code(s): R53.1 - WEAKNESS Status: Acute Priority: High Current Visit: Yes - Problem List Review Problem List Initiated/Reviewed/Updated: Yes - Assessment Assessment:: Acute on Chronic CHF, s/p aortic valve replacement Malignant Effusion, pulmonary nodules - Plan Plan:: Will continue to diurese patient. Plan for thoracentesis on Monday with Dr. Cunha. Continue to provide 1 on 1 care when up due to history of orthostatic hypotension. Repeat labs in am. 01-24-2021 Labs today show slight improvement of WBC down to 13.1. CRP 2.1. Creatinine stable at 1.3. Will continue with diuretics, thoracentesis tomorrow.
[2021-01-24] MEDS: Enoxaparin 40 MG/0.4 ML Syringe SUBCUT SCH (19:52)
[2021-01-25] MEDS: fentaNYL 50 MCG/ML SDV IVPUSH PRN ×3 (03:29→15:31)
[2021-01-25] MEDS: Levothyroxine 100 MCG Tab PO SCH (07:00)
[2021-01-25] MEDS: MIDODRINE 5 MG PO SCH ×2 (07:00→11:33)
[2021-01-25] MEDS: Aspirin 81 MG Tab.EC PO SCH (07:28)
[2021-01-25] MEDS: atorvaSTATin 20 MG Tab PO SCH (07:28)
[2021-01-25] MEDS: Clopidogrel 75 MG Tab PO SCH (07:28)
[2021-01-25] MEDS: Furosemide 40 MG/4 ML VIAL IVPUSH SCH (07:29)
[2021-01-25 08:32] LABS: CHLORIDE,CL 104 mEq/L (98-106); SODIUM,NA 143 mEq/L (136-145)
--- NOTE | 2021-01-25 11:15 | PCM.DCSUM1 ---
Discharge Summary - Hospital Course HPI Initial Comments: Lebron is an 85 yo male who resides at the [facility]. Patient underwent a TAVR procedure in July with no marked improvement with breathing. Patient had been started on Lasix with no improvement. Patient had routine follow up with Dr. Guadarrama which did show a right sided effusion and pulmonary nodules. CT scan on admission did show likely neoplastic process in both the left and right lungs. ProBNP was slightly elevated on admit. Diagnosis: Stroke: No - Discharge Data Discharge Date: 01/25/21 Discharge Disposition: DC/Tfer to Hospice - Home 50 Condition: Poor - Referral to Home Health Primary Care Physician: Chucho Cunha MD - Discharge Diagnosis/Problem(s) (1) Malignant pleural effusion SNOMED Code(s): 904505903 ICD Code: J91.0 - MALIGNANT PLEURAL EFFUSION Status: Acute Priority: High Current Visit: Yes (2) Weakness SNOMED Code(s): 65241182 ICD Code: R53.1 - WEAKNESS Status: Acute Priority: High Current Visit: Yes (3) CHF (congestive heart failure), NYHA class II SNOMED Code(s): 168505107, 797653048 ICD Code: I50.9 - HEART FAILURE, UNSPECIFIED Status: Acute Priority: High Current Visit: Yes Qualifiers: Congestive heart failure type: systolic Congestive heart failure chronicity: acute on chronic Qualified Code(s): I50.23 - Acute on chronic systolic (congestive) heart failure - Patient Instructions Diet: Usual Diet as Tolerated - Discharge Plan *PRESCRIPTION DRUG MONITORING PROGRAM REVIEWED*: Not Applicable *COPY OF PRESCRIPTION DRUG MONITORING REPORT IN PATIENT ALISIA: Not Applicable Home Medications: Home Meds Levothyroxine [Synthroid] 100 mcg PO DAILY 10/01/18 [History] Acetaminophen [Tylenol] 325 mg PO Q4H PRN 10/08/19 [History] Aspirin [Adult Low Dose Aspirin EC] 1 tab PO DAILY 01/21/21 [History] Clopidogrel [Plavix] 1 tab PO DAILY 01/21/21 [History] Furosemide [Lasix] 40 mg PO DAILY 01/21/21 [History] Midodrine 2 tab PO TID 01/21/21 [History] atorvaSTATin [Lipitor] 20 mg PO DAILY 01/21/21 [History] polyethylene glycoL 3350 [Miralax] 17 gm PO Q48H 01/22/21 [History] Oxygen Therapy Mode: Nasal Cannula Oxygen Flow Rate (L/min): 2.5 Maintain SpO2% greater than: 90 - Discharge Summary/Plan Comment DC Time >30 min.: Yes Discharge Summary/Plan Comment: Reviewed repeat chest x-ray this morning which did show worsening right sided pleural effusion. Dr. Cunha consulted and did evaluate Hernandez this morning. Will plan for thoracentesis at noon today with plan for discharge afterwards. Dr. Cunha has been in consultation with Hernandez and his family in regards to further treatment. Patient will return to group home with Hospice to evaluate. Plan for discharge this afternoon after thoracentesis. - General Info Admission Dx/Problem (Free Text: CHF following aortic valve replacement Likely malignant effusion, CT suggestive of neoplastic process Subjective Update: Hernandez is resting comfortably in his hospital bed this morning. States he continues to have difficulty with taking a deep breath. Continues to have some shortness of breath. Overall states he does feel a little better today. Continues to have orthostasis when standing and requires assistance, which has known orthostatic hypotension. States appetite is good. Functional Status: Reports: Pain Controlled, Tolerating Diet, Ambulating (with assistance), Urinating - Review of Systems General: Reports: Weakness, Fatigue HEENT: Reports: No Symptoms Pulmonary: Reports: Shortness of Breath, Pleuritic Chest Pain Cardiovascular: Reports: Lightheadedness (upon ambulation). Denies: Chest Pain, Edema Gastrointestinal: Reports: No Symptoms Genitourinary: Reports: No Symptoms Musculoskeletal: Reports: No Symptoms Skin: Reports: No Symptoms Neurological: Reports: No Symptoms Psychiatric: Reports: No Symptoms - Patient Data Vitals - Most Recent: Last Vital Signs Temp 97.9 F 01/25/21 08:00 Pulse 68 01/25/21 08:00 Resp 20 01/25/21 08:00 BP 146/71 H 01/25/21 08:00 Pulse Ox 98 01/25/21 08:00 Weight - Most Recent: 191 lb 3.2 oz Lab Results - Last 24 hrs: Laboratory Results - last 24 hr 01/25/21 01/25/21 Range/Units 07:18 07:18 WBC 14.6 H (5.0-10.0) 10^3/uL RBC 4.06 L (4.50-6.00) 10^6/uL Hgb 10.9 L (14.0-18.0) g/dL Hct 36.5 L (40.0-54.0) % MCV 89.9 (82.0-94.0) fL MCH 26.8 L (27.0-32.0) pg MCHC 29.9 L (33.0-38.0) g/dL RDW Coeff of Cristina 18.4 H (11.0-15.0) % Plt Count 414 H (150-400) 10^3/uL Add Manual Diff Yes Neutrophils % (Manual) 60 (35-85) % Lymphocytes % (Manual) 20 L (21-55) % Monocytes % (Manual) 9 (2-12) % Eosinophils % (Manual) 10 H (0-5) % Basophils % (Manual) 1 (0-3) % Absolute Neutrophils 8.76 H (1.80-7.00) 10^3/uL Lymphocytes # (Manual) 2.92 (1.00-4.80) 10^3/uL Monocytes # (Manual) 1.31 H (0.00-0.80) 10^3/uL Eosinophils # (Manual) 1.46 H (0.00-0.45) 10^3/uL Basophils # (Manual) 0.15 10^3/uL Sodium 143 (136-145) mEq/L Potassium 4.3 (3.5-5.0) mEq/L Chloride 104 (98-106) mEq/L Carbon Dioxide 36 H (21-32) mmol/L BUN 35 H (7-18) mg/dL Creatinine 1.4 H (0.7-1.3) mg/dL Est Cr Clr Drug Dosing 40.34 mL/min Estimated GFR (MDRD) 48 L (>=60) mL/min Glucose 92 (75-99) mg/dL Calcium 9.2 (8.4-10.1) mg/dL Troponin I < 0.017 (0.00-0.06) ng/mL C-Reactive Protein 2.5 H (0.2-0.8) mg/dL Med Orders - Current: Current Medications Aspirin (Aspirin 81 Mg Tab.Ec) 81 mg PO DAILY [facility] Last Admin: 01/25/21 07:28 Dose: 81 mg Documented by: Atorvastatin Calcium (Atorvastatin 20 Mg Tab) 20 mg PO DAILY [facility] Last Admin: 01/25/21 07:28 Dose: 20 mg Documented by: Clopidogrel Bisulfate (Clopidogrel 75 Mg Tab) 75 mg PO DAILY [facility] Last Admin: 01/25/21 07:28 Dose: 75 mg Documented by: Enoxaparin Sodium (Enoxaparin 40 Mg/0.4 Ml Syringe) 40 mg SUBCUT Q24H [facility] Last Admin: 01/24/21 19:52 Dose: 40 mg Documented by: Fentanyl (Fentanyl 50 Mcg/Ml Sdv) 25 mcg IVPUSH Q2H PRN PRN Reason: Pain Last Admin: 01/25/21 08:23 Dose: 25 mcg Documented by: Furosemide (Furosemide 40 Mg/4 Ml Vial) 40 mg IVPUSH Q24H [facility] Last Admin: 01/25/21 07:29 Dose: 40 mg Documented by: Levothyroxine Sodium (Levothyroxine 100 Mcg Tab) 100 mcg PO ACBRK [facility] Last Admin: 01/25/21 07:00 Dose: 100 mcg Documented by: Midodrine 5 Mg Tab * (*Own Med) 0 tab PO TID@0800,1200,1800 [facility] Last Admin: 01/25/21 07:00 Dose: 2 tab Documented by: Polyethylene Glycol (Polyethylene Glycol 3350 Powder 17 Gm Packet) 17 gm PO Q48H [facility] Last Admin: 01/24/21 07:30 Dose: 17 gm Documented by: Sodium Chloride (Sodium Chloride 0.9% 10 Ml Syringe) 10 ml FLUSH ASDIRECTED PRN PRN Reason: Keep Vein Open Discontinued Medications Furosemide (Furosemide 40 Mg/4 Ml Vial) 40 mg IVPUSH BID [facility] Last Admin: 01/22/21 07:45 Dose: 40 mg Documented by: Non-Formulary Medication (Midodrine [Midodrine]) 2 tab PO BEDTIME [facility] Polyethylene Glycol (Polyethylene Glycol 3350 Powder 17 Gm Packet) 17 gm PO DAILY [facility] Last Admin: 01/22/21 07:53 Dose: 17 gm Documented by: - Exam General: Reports: Alert, Oriented, Cooperative, No Acute Distress Lungs: Reports: Decreased Breath Sounds (right base), Crackles Cardiovascular: Reports: Regular Rate, Regular Rhythm GI/Abdominal Exam: Normal Bowel Sounds, Soft, Non-Tender, No Distention Skin: Reports: Warm, Dry, Intact Neurological: Reports: No New Focal Deficit Psy/Mental Status: Reports: Alert, Normal Affect, Normal Mood
--- NOTE | 2021-01-25 14:22 | OR ---
DATE OF OPERATION: 01/21/2021 PREOPERATIVE DIAGNOSIS: RIGHT-SIDED PLEURAL EFFUSION. POSTOPERATIVE DIAGNOSIS: RIGHT-SIDED PLEURAL EFFUSION. SURGEON: Chucho uCnha MD PROCEDURE: DIAGNOSTIC/THERAPEUTIC THORACENTESIS. ANESTHESIA: Local. DIFFERENTIAL TESTER: Ultrasound. COMPLICATIONS: None. SPECIMEN: 30 mL bloody pleural fluid. 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 Family does not want aggressive treatment but would like a known diagnosis. We elected to proceed with thoracentesis. DESCRIPTION OF PROCEDURE: The patient was placed seated on his hospital bed with leaning over end table. The right posterior back was prepped and draped in usual fashion. Ultrasound was used to find a large pleural fluid pocket around the 6th or 7th intercostal space. We prepped this area and anesthetized with lidocaine down to the top of the rib and over the top into the pleural cavity, and we were able to withdraw about 10 mL of very bloody pleural fluid. A small incision was made with an 11 blade scalpel. A threaded catheter was then inserted over the rib in the same tract and we were able to get only about 10 or 15 mL of again bloody fluid before it kept clogging on us. We tried to do this with just needle and it was unsuccessful, I believe this was a loculated area here and we terminated the procedure as patient was having a hard time tolerating. I believe approximately 30 mL of fluid was removed in its entirety and will be sent for cytology. The needle was removed without any complication. Pressure dressing was applied. The patient tolerated the procedure well. He will be sent for a postprocedure expiratory film. KAREN/NIRALI /[id number]
== END 2021-01-25 17:00 | disposition home or self-care (01) | DRG 180 ==
LOC: CC.LAB 11:14 → UNDOADMIN 13:04 → CC.MS 13:04
PROVIDERS: ADMIT Family Medicine; ATTEND Family Medicine
PROC: 0W993ZZ Drainage of Right Pleural Cavity, Percutaneous Approach (ICD-10-PCS; principal; 2021-01-21)
DX: C34.91 Malignant neoplasm of unspecified part of right bronchus or lung (principal); I50.23 Acute on chronic systolic (congestive) heart failure; J91.0 Malignant pleural effusion; I25.10 Atherosclerotic heart disease of native coronary artery without angina pectoris; C34.92 Malignant neoplasm of unspecified part of left bronchus or lung; Z51.5 Encounter for palliative care
CPT/HCPCS: 32555; 36415; 71045; 71046; 71250; 80048; 83880; 84484; 85025; 86140; 87070; 88112; 88305; 93005; 93010; A9270-GY; J1650; J1940; J3010